=== PATIENT | male | born 1950 | race African-American/Black ===

== ENCOUNTER 2018-08-10 16:15 | Emergency (ER) | payer OTHER ==
[2018-08-10] MEDS ORDERED: ONDANSETRON HCL INJ/PF 4 MG/2 ML SDV IV ONE (17:18)
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
--- NOTE | 2018-08-10 19:00 | RADIOLOGY REPORT (SQ) ---
EXAM DESCRIPTION: CHEST 2 VIEWS COMPLETED DATE/TIME: 08/10/2018 6:52 pm REASON FOR STUDY: Cough congestion short of breath nvd COMPARISON: None. EXAM PARAMETERS: NUMBER OF VIEWS: two views TECHNIQUE: Digital Frontal and Lateral radiographic views of the chest acquired. RADIATION DOSE: NA LIMITATIONS: none FINDINGS: LUNGS AND PLEURA: Mild subsegmental atelectasis in the lung bases. No infiltrate, effusio n, or mass. MEDIASTINUM AND HILAR STRUCTURES: No masses or contour abnormalities. HEART AND VASCULAR STRUCTURES: Heart normal size. No evidence for failure. BONES: No acute findings. HARDWARE: None in the chest. OTHER: No other significant finding. IMPRESSION: Mild subsegmental atelectasis. TECHNICAL DOCUMENTATION: JOB ID: [id number] [employer]- All Rights Reserved Reading location - IP/workstation name: [email or web address]
[2018-08-10 19:36] LABS: ABSOLUTE LYMPHOCYTES (AUTO) 1.1 10^3/uL (0.5-4.7); ABSOLUTE MONOCYTES (AUTO) 0.5 10^3/uL (0.1-1.4); ABSOLUTE NEUT (AUTO) 6.3 10^3/uL (1.7-8.2); BASOPHILS % (AUTO) 0.6 % (0-2); EOSINOPHILS % (AUTO) 0.2 % (0-6); HEMATOCRIT 54.4 % (37.9-51.0); HEMOGLOBIN 18.4 g/dL (13.5-17.0); LYMPHOCYTES % (AUTO) 13.7 % (13-45); MEAN CORPUSCULAR HEMOGLOBIN 30.4 pg (27.0-33.4); MEAN CORPUSCULAR HGB CONC 33.8 g/dL (32.0-36.0); MEAN CORPUSCULAR VOLUME 90 fl (80-97); MONOCYTES % (AUTO) 6.8 % (3-13); PLATELET COUNT 238 10^3/uL (150-450); RED BLOOD COUNT 6.04 10^6/uL (4.35-5.55); RED CELL DISTRIBUTION WIDTH 14.1 % (11.5-14.0); SEGMENTED NEUTROPHILS % (AUTO) 78.7 % (42-78); TOTAL CELLS COUNTED % (AUTO) 100 %
[2018-08-10 19:55] LABS: ALANINE AMINOTRANSFERASE 33 U/L (21-72); ALBUMIN 4.7 g/dL (3.5-5.0); ALKALINE PHOSPHATASE 119 U/L (38-126); ANION GAP 9 (5-19); ASPARTATE AMINO TRANSFERASE 26 U/L (17-59); BILIRUBIN,DIRECT 0.3 mg/dL (0.0-0.4); BILIRUBIN,TOTAL 1.7 mg/dL (0.2-1.3); BLOOD UREA NITROGEN 13 mg/dL (7-20); CALCIUM 9.8 mg/dL (8.4-10.2); CARBON DIOXIDE 30 mmol/L (22-30); CHLORIDE 104 mmol/L (98-107); CREATINE KINASE 95 U/L (55-170); GLUCOSE 120 mg/dL (75-110); LIPASE 77.9 U/L (23-300); POTASSIUM 4.3 mmol/L (3.6-5.0); SODIUM 143.4 mmol/L (137-145); TOTAL PROTEIN 8.4 g/dL (6.3-8.2)
[2018-08-10 20:06] LABS: CREATINE KINASE MB 1.33 ng/mL (<4.55); TROPONIN I < 0.012 ng/mL
[2018-08-10 23:16] LABS: APPEARANCE,URINE SLIGHTLY-CLOUDY; BILIRUBIN,URINE NEGATIVE (NEGATIVE); COLOR,URINE YELLOW; GLUCOSE, URINE 50 mg/dL (NEGATIVE); KETONES,URINE 20 mg/dL (NEGATIVE); LEUKOCYTE ESTERASE,URINE NEGATIVE (NEGATIVE); NITRITE,URINE NEGATIVE (NEGATIVE); PROTEIN,URINE NEGATIVE (NEGATIVE); URINE SPECIFIC GRAVITY 1.024
[2018-08-11] VITALS: BP 137/83
[2018-08-11] MEDS ORDERED: MECLIZINE HCL 25 MG TABLET PO ONE (00:14)
[2018-08-11] MEDS ORDERED: ONDANSETRON ODT 4 MG TAB (6 TAB/ER DISP) PO PRN (00:15)
--- NOTE | 2018-08-11 00:17 | ER Document Report ---
ED General - General Chief Complaint: Dizziness Stated Complaint: DIZZINESS Time Seen by Provider: 08/10/18 17:17 Primary Care Provider: ARTHUR PAYNE MD [Primary Care Provider] - Follow up as needed Mode of Arrival: Medic Notes: Patient is a 67-year-old male who presents the emergency department after experiencing an episode of dizziness and lightheadedness that started at approximately 5:00 this afternoon. Patient reports that he vomited one time after he felt like the room was spinning around him. Patient does report having a history of vertigo and states that this is exactly what it felt like. Patient denies any recent illness, denies any shortness of breath or chest pain. - Related Data Allergies/Adverse Reactions: No Known Allergies Allergy (Unverified 08/10/18 16:19) Past Medical History - General Information source: Patient - Social History Smoking Status: Current Every Day Smoker Frequency of alcohol use: None Family History: Reviewed & Not Pertinent Patient has suicidal ideation: No Patient has homicidal ideation: No - Past Medical History Cardiac Medical History: Reports: Hx Hypertension EENT Medical History: Reports: Other - Vertigo Renal/ Medical History: Denies: Hx Peritoneal Dialysis Surgical Hx: Negative - Immunizations Immunizations up to date: Yes Review of Systems - Review of Systems Constitutional: Other - Dizziness, sensation of room spinning EENT: No symptoms reported Cardiovascular: No symptoms reported Respiratory: No symptoms reported Gastrointestinal: Nausea, Vomiting - x1. denies: Abdominal pain, Blood in vomit Genitourinary: No symptoms reported Male Genitourinary: No symptoms reported Musculoskeletal: No symptoms reported Skin: No symptoms reported Hematologic/Lymphatic: No symptoms reported Neurological/Psychological: No symptoms reported Physical Exam - Vital signs Vitals: Temp Pulse Resp BP Pulse Ox 97.5 F 87 16 138/99 H 97 08/10/18 16:28 08/10/18 16:28 08/10/18 16:28 08/10/18 16:28 08/10/18 16:28 - Notes Notes: PHYSICAL EXAMINATION: GENERAL: Well-appearing, well-nourished and in no acute distress. HEAD: Atraumatic, normocephalic. EYES: Pupils equal round and reactive to light, extraocular movements intact, sclera anicteric, conjunctiva are normal. ENT: Nares patent, oropharynx clear without exudates. Moist mucous membranes. NECK: Normal range of motion, supple without lymphadenopathy LUNGS: Breath sounds clear to auscultation bilaterally and equal. No wheezes rales or rhonchi. HEART: Regular rate and rhythm without murmurs ABDOMEN: Soft, nontender, nondistended abdomen. No guarding, no rebound. No masses appreciated. Musculoskeletal: Normal range of motion, no pitting or edema. No cyanosis. NEUROLOGICAL: Cranial nerves grossly intact. Normal speech, normal gait. Normal sensory, motor exams PSYCH: Normal mood, normal affect. SKIN: Warm, Dry, normal turgor, no rashes or lesions noted. Course - Re-evaluation Re-evalutation: This is an otherwise healthy male patient who is alert, oriented, smiling and interactive at the time of my initial assessment. Patient reports that this time he still feels a slight dizziness however his symptoms have mostly resolved. Patient reports that when he was at home he felt like the room was spinning around him. He describes that he has had vertigo one time in the past and was given a medication that helped. He states these episodes that started last night felt very similar to previous episodes of vertigo. He does state he vomited one time. He was given Zofran by the provider in triage and reports he has had no more episodes of vomiting and has not had any nausea. CBC, CMP and troponin are unremarkable. Urinalysis does have some hematuria but otherwise does not appear to be infected. Chest x-ray with no acute infiltrates or pneumothorax. Patient's vital signs were rechecked and are within normal limits. Patient has been up and ambulating around the nurses station with out any distress. Patient will be discharged home at this time with a diagnosis of vertigo and will be started on a 7-day course of meclizine. I encourage the patient to please use caution when getting up from bed in the morning before standing up. I also encouraged the patient to follow-up with his primary care provider if his symptoms persist. - Vital Signs Vital signs: Temp Pulse Resp BP Pulse Ox 98.7 F 96 16 137/83 H 97 08/10/18 23:58 08/10/18 23:58 08/10/18 23:58 08/10/18 23:58 08/10/18 23:58 - Laboratory Result Diagrams: 08/10/18 19:09 08/10/18 19:09 Laboratory results interpreted by me: 08/10/18 08/10/18 08/10/18 19:09 19:09 23:00 RBC 6.04 H Hgb 18.4 H Hct 54.4 H RDW 14.1 H Seg Neutrophils % 78.7 H Glucose 120 H Total Bilirubin 1.7 H Total Protein 8.4 H Urine Glucose (UA) 50 H Urine Ketones 20 H Urine Blood LARGE H Urine Urobilinogen 4.0 H Urine Ascorbic Acid 20 H Discharge - Discharge Clinical Impression: Vertigo Condition: Stable Disposition: HOME, SELF-CARE Instructions: Antinausea Medication ([facility]), Meclizine ([facility]), Vertigo ([facility]) Additional Instructions: It appears that your symptoms are most likely being caused by vertigo. Please take the meclizine as directed. Your blood work today was normal. Please follow-up with your primary care provider in the next 3-5 days for a follow-up. Please return to the emergency department should you experience worsening symptoms such as episode of passing out, development of chest pain or any other symptom that is concerning to you. Prescriptions: Meclizine HCl [Antivert 25 mg Tablet] 25 mg PO TID PRN #21 tablet PRN Reason: Referrals: ARTHUR PAYNE MD [Primary Care Provider] - Follow up as needed
== END 2018-08-11 00:25 | disposition home or self-care (01) ==
LOC: ER 16:15
DX: R42 Dizziness and giddiness (principal); R11.10 Vomiting, unspecified; I10 Essential (primary) hypertension; F17.200 Nicotine dependence, unspecified, uncomplicated
CPT/HCPCS: 99284; 96374; 36415; 82553; 82550; 83690; 85025; 80053; 81001; 84484; 71046; J2405

== ENCOUNTER 2018-11-26 06:16 | Emergency (ER) | payer OTHER ==
[2018-11-26] MEDS ORDERED: NORMAL SALINE 500 ML IV ONE (07:11)
[2018-11-26] MEDS ORDERED: MECLIZINE HCL 25 MG TABLET PO ONE (07:11)
[2018-11-26] MEDS ORDERED: ONDANSETRON HCL INJ/PF 4 MG/2 ML SDV IV ONE (07:11)
[2018-11-26] MEDS ORDERED: KETOROLAC TROMETHAMINE INJ/PF 30 MG/1 ML SDV IV ONE (07:12)
--- NOTE | 2018-11-26 09:49 | ER Document Report ---
ED General - General Chief Complaint: Vertigo Stated Complaint: DIZZINESS Time Seen by Provider: 11/26/18 06:53 Primary Care Provider: ARTHUR PAYNE MD [Primary Care Provider] - Follow up as needed TRAVEL OUTSIDE OF THE [place] IN LAST 30 DAYS: No - HPI Notes: Patient is a 67-year-old female who presents to the emergency department for evaluation of vertigo. He states it started in the middle the night last night. He has a history of similar. He denies any visual changes. He states he has no hearing loss, no tinnitus. Symptoms are worsened by turning his head. No recent head injuries. No URI. Taking his medications as prescribed. He states that he has used meclizine in the past which is helped, but he ran out. He does have a headache, that he rates currently a 3 out of 5, that he states is not dissimilar to headaches he had in the past with his vertigo. He had nausea with 2 episodes of emesis, nonbloody and nonbilious. - Related Data Allergies/Adverse Reactions: No Known Allergies Allergy (Unverified 08/10/18 16:19) Past Medical History - General Information source: Patient - Social History Smoking Status: Current Every Day Smoker Family History: Reviewed & Not Pertinent Patient has suicidal ideation: No Patient has homicidal ideation: No - Past Medical History Cardiac Medical History: Reports: Hx Hypercholesterolemia, Hx Hypertension Other: Vertigo Renal/ Medical History: Denies: Hx Peritoneal Dialysis - Immunizations Immunizations up to date: Yes Review of Systems - Review of Systems Constitutional: No symptoms reported EENT: See HPI Cardiovascular: No symptoms reported Respiratory: No symptoms reported Gastrointestinal: See HPI Genitourinary: No symptoms reported Musculoskeletal: No symptoms reported Skin: No symptoms reported Neurological/Psychological: No symptoms reported Physical Exam - Vital signs Vitals: Temp Pulse Resp BP Pulse Ox 98 F 110 H 20 159/110 H 97 11/26/18 06:19 11/26/18 06:19 11/26/18 06:19 11/26/18 06:19 11/26/18 06:19 - Notes Notes: Vital signs reviewed, please refer to chart. Head is normocephalic, atraumatic. Pupils equal round, reactive to light. TMs are pearly miner with good light reflex. Neck is supple without meningismus. Heart is regular rate and rhythm. Lungs are clear to auscultation bilaterally. Abdomen is soft, nontender, normoactive bowel sounds throughout. Extremities without cyanosis, clubbing. Posterior calves are nontender. Peripheral pulses are equal. Skin is warm and dry. Patient is awake, alert, oriented x3. He does have some horizontal nystagmus. Otherwise cranial nerves II through XII are grossly intact without focal neurological deficits. Strength is plus 5 out of 5 bilateral lower extremities. Reflexes are symmetrical, sensation is intact all 4 extremities. Intact [id number], rapid altering movements, [id number]. Course - Re-evaluation Re-evalutation: 11/26/18 09:47 Patient presents emergency department for evaluation. He has no neurological deficits, no other symptoms besides the vertigo, headache, vomiting. He is feeling markedly improved after treatment here. We will consider him home with Zofran and meclizine, close follow-up. He is return to the emergency department with worsening or new concerning symptoms of any sort. - Vital Signs Vital signs: Temp Pulse Resp BP Pulse Ox 98 F 110 H 16 147/98 H 97 11/26/18 06:19 11/26/18 06:19 11/26/18 08:01 11/26/18 08:01 11/26/18 08:01 Discharge - Discharge Clinical Impression: Benign positional vertigo Qualifiers: Laterality: unspecified laterality Qualified Code(s): H81.10 - Benign paroxysmal vertigo, unspecified ear Condition: Stable Disposition: HOME, SELF-CARE Instructions: Vertigo ([facility]) Additional Instructions: Stay hydrated with small, frequent sips of fluids. Take Zofran as needed for nausea, meclizine as needed for vertigo. Follow-up with your doctor this week. Return to the emergency department with worsening or new concerning symptoms. Referrals: ARTHUR PAYNE MD [Primary Care Provider] - Follow up as needed
[2018-11-26 10:08] VITALS: BP 144/90
== END 2018-11-26 10:08 | disposition home or self-care (01) ==
LOC: ER 06:16
DX: H81.10 Benign paroxysmal vertigo, unspecified ear (principal); R51 Headache; Z79.899 Other long term (current) drug therapy; F17.200 Nicotine dependence, unspecified, uncomplicated; I10 Essential (primary) hypertension
CPT/HCPCS: 99283; 96361; 96374; 96375; J1885; J2405; J7040

== ENCOUNTER 2019-11-25 10:04 | Observation (INO) | payer OTHER, MEDICARE ==
[2019-11-25 10:33] LABS: ABSOLUTE BASOPHILS # (AUTO) 0.1 10^3/uL (0.0-0.2); ABSOLUTE EOSINOPHILS # (AUTO) 0.2 10^3/uL (0.0-0.6); ABSOLUTE LYMPHOCYTES (AUTO) 2.9 10^3/uL (0.5-4.7); ABSOLUTE MONOCYTES (AUTO) 0.7 10^3/uL (0.1-1.4); ABSOLUTE NEUT (AUTO) 2.4 10^3/uL (1.7-8.2); BASOPHILS % (AUTO) 0.8 % (0-2); EOSINOPHILS % (AUTO) 3.7 % (0-6); HEMATOCRIT 51.4 % (37.9-51.0); HEMOGLOBIN 17.9 g/dL (13.5-17.0); LYMPHOCYTES % (AUTO) 46.5 % (13-45); MEAN CORPUSCULAR HEMOGLOBIN 31.2 pg (27.0-33.4); MEAN CORPUSCULAR HGB CONC 34.7 g/dL (32.0-36.0); MEAN CORPUSCULAR VOLUME 90 fl (80-97); PLATELET COUNT 259 10^3/uL (150-450); RED BLOOD COUNT 5.73 10^6/uL (4.35-5.55); RED CELL DISTRIBUTION WIDTH 14.7 % (11.5-14.0); TOTAL CELLS COUNTED % (AUTO) 100 %; WHITE BLOOD COUNT 6.3 10^3/uL (4.0-10.5)
--- NOTE | 2019-11-25 10:37 | RADIOLOGY REPORT (SQ) ---
EXAM DESCRIPTION: CT HEAD WITHOUT IMAGES COMPLETED DATE/TIME: 11/25/2019 10:19 am REASON FOR STUDY: Slurred Speech COMPARISON: None. TECHNIQUE: Axial images acquired through the brain without intravenous contrast. Images reviewed wi th bone, brain and subdural windows. Additional sagittal and coronal reconstructions were generated. Images stored on PACS. All CT scanners at this facility use dose modulation, iterative reconstruction, and/or weight based d osing when appropriate to reduce radiation dose to as low as reasonably achievable (ALARA). [facility]: Dose Right [facility]: CareDose [facility]: Dose Right [facility]: Teradose 4D [facility]: Modulus RADIATION DOSE: CT Rad equipment meets quality standard of care and radiation dose reduction techniq ues were employed. CTDIvol: 53.2 mGy. DLP: 1070 mGy-cm. mGy. LIMITATIONS: None. FINDINGS: VENTRICLES: Prominent. CEREBRUM: No masses. No hemorrhage. No midline shift. Areas of low density in the white matter mos t likely due to chronic micro-vascular ischemic change. No evidence for acute infarction. CEREBELLUM: No masses. No hemorrhage. No alteration of density. No evidence for acute infarction. EXTRAAXIAL SPACES: Mild age-related involutional change. No fluid collections. No masses. ORBITS AND GLOBE: No intra- or extraconal masses. Normal contour of globe without masses. CALVARIUM: No fracture. PARANASAL SINUSES: There is retention cyst or polyp in the left maxillary sinus. SOFT TISSUES: No mass or hematoma. OTHER: No other significant finding. IMPRESSION: MILD CHRONIC CHANGES OF ATROPHY AND MICROVASCULAR ISCHEMIA. NO ACUTE PROCESS. EVIDENCE OF ACUTE STROKE: NO. COMMENT: Pertinent positive or negative findings of the imaging study reported as a CRITICAL EXAM oswald German at10:30 on 11/25/2019. Category of Critical Exam: Stroke protocol. TECHNICAL DOCUMENTATION: JOB ID: [id number] Quality ID # [id number]: Final reports with documentation of one or more dose reduction techniques (e.g., Au tomated exposure control, adjustment of the mA and/or kV according to patient size, use of iterative reconstruction technique) 2010 [employer]- All Rights Reserved Reading location - IP/workstation name: [email or web address]
--- NOTE | 2019-11-25 10:39 | RADIOLOGY REPORT (SQ) ---
EXAM DESCRIPTION: CHEST SINGLE VIEW IMAGES COMPLETED DATE/TIME: 11/25/2019 10:22 am REASON FOR STUDY: Slurred Speech COMPARISON: 08/10/2018 EXAM PARAMETERS: NUMBER OF VIEWS: One view. TECHNIQUE: Single frontal radiographic view of the chest acquired. RADIATION DOSE: NA LIMITATIONS: None. FINDINGS: LUNGS AND PLEURA: Minimal blunting of the right costophrenic angle most likely pleural thi ckening although a small effusion cannot be excluded. No consolidation. No pneumothorax. MEDIASTINUM AND HILAR STRUCTURES: No masses. Contour normal. HEART AND VASCULAR STRUCTURES: Heart normal in size. Normal vasculature. BONES: No acute findings. HARDWARE: None in the chest. OTHER: No other significant finding. IMPRESSION: Minimal blunting of the right costophrenic angle. No other significant findings. TECHNICAL DOCUMENTATION: JOB ID: [id number] 2010 [employer]- All Rights Reserved Reading location - IP/workstation name: [email or web address]
[2019-11-25 10:50] LABS: ALBUMIN 4.1 g/dL (3.5-5.0); ALKALINE PHOSPHATASE 96 U/L (38-126); ANION GAP 7 (5-19); ASPARTATE AMINO TRANSFERASE 17 U/L (17-59); BILIRUBIN,TOTAL 1.1 mg/dL (0.2-1.3); BLOOD UREA NITROGEN 12 mg/dL (7-20); CALCIUM 9.5 mg/dL (8.4-10.2); CARBON DIOXIDE 28 mmol/L (22-30); CHLORIDE 102 mmol/L (98-107); CREATINE KINASE 83 U/L (55-170); GLUCOSE 109 mg/dL (75-110); TOTAL PROTEIN 7.5 g/dL (6.3-8.2)
--- NOTE | 2019-11-25 11:00 | ER Document Report ---
ED Neuro Symptoms/Deficit - General Chief Complaint: Numbness of Arm Stated Complaint: STROKE Time Seen by Provider: 11/25/19 10:15 Primary Care Provider: BILLY,ANA [Primary Care Provider] - Follow up as needed Notes: 68-year-old man presents to the emergency department with a history of intermittent episodes of speech difficulty with numbness involving the left arm and hand. He states that he has had episodes off and on for a number of weeks, however, on Monday he began having headache and dizziness with speech being slurred and left arm tingling. He continues to have the left arm tingling sensation at this time. He also states that he had felt like his legs were weak, however, he has been walking without difficulty. He is a smoker, he has hypertension and hyperlipidemia. TRAVEL OUTSIDE OF THE [place] IN LAST 30 DAYS: No - Related Data Allergies/Adverse Reactions: No Known Allergies Allergy (Unverified 08/10/18 16:19) Past Medical History - Social History Smoking Status: Current Every Day Smoker Family History: Reviewed & Not Pertinent Patient has homicidal ideation: No - Past Medical History Cardiac Medical History: Reports: Hx Hypercholesterolemia, Hx Hypertension Renal/ Medical History: Denies: Hx Peritoneal Dialysis - Immunizations Immunizations up to date: Yes Review of Systems - Review of Systems Notes: Constitutional: Negative for fever. HENT: Negative for sore throat. Eyes: Negative for visual changes. Cardiovascular: Negative for chest pain. Respiratory: Negative for shortness of breath. Gastrointestinal: Negative for abdominal pain, vomiting or diarrhea. Genitourinary: Negative for dysuria. Musculoskeletal: Negative for back pain. Skin: Negative for rash. Neurological: + Headaches, + tingling in the upper extremities, +slurred speech 10 point ROS negative except as marked above and in HPI. Physical Exam - Vital signs Vitals: Temp 98.5 F 11/25/19 10:05 - Notes Notes: PHYSICAL EXAMINATION: Physical Exam: General: Well-nourished well-developed in no acute distress HEENT: NC/AT, pupils equal round and reactive to light, MM moist,nares clear, oropharynx clear, airway patent Neck: supple, no adenopathy, no masses. Good range of motion Lungs: clear, no wheezing, no rales no rhonchi CVS: Regular rate and rhythm no murmur gallop or rub Abdomen: Soft, active, nontender, no masses, no hepatosplenomegaly Ext: No edema, clubbing or cyanosis. Neuro: Alert and responsive, moving all 4 extremities on command, cranial nerves intact, no focal findings Skin: Intact no open lesions, no rash PSYCH: Normal mood, normal affect. Course - Re-evaluation Re-evalutation: 11/25/19 12:19 Patient could not go to MRI due to a history of penile implant. Discussed the patient with the hospitalist, Dr. Turcios will admit the patient to the hospital for further evaluation and treatment. 11/25/19 12:22 Patient has an NIH score of 2-3, laying in the left arm with normal strength and episode of speech difficulty. No focal neuro findings. Patient is not a candidate for alteplase, symptoms ongoing since Monday. 11/23/2019 - Vital Signs Vital signs: Temp Pulse Resp BP Pulse Ox 98.5 F 94 16 145/85 H 94 11/25/19 10:09 11/25/19 10:39 11/25/19 10:39 11/25/19 10:39 11/25/19 10:39 - Laboratory Result Diagrams: 11/25/19 10:26 11/25/19 10:26 Laboratory results interpreted by me: 11/25/19 10:26 RBC 5.73 H Hgb 17.9 H Hct 51.4 H RDW 14.7 H Lymph % (Auto) 46.5 H Seg Neutrophils % 38.0 L - Diagnostic Test Radiology reviewed: Image reviewed, Reports reviewed - Chest x-ray: No acute cardiopulmonary findings CT head noncontrast: Mild chronic atrophic changes with microvascular ischemia, no acute stroke seen. - EKG Interpretation by [facility] EKG shows normal: Sinus rhythm - Rate of 84, no acute ST or T wave abnormalities. Discharge - Discharge Clinical Impression: Paresthesia of left arm, TIA (transient ischemic attack) Condition: Good Disposition: ADMITTED INPATIENT Admitting Provider: Karolina (Hospitalist) Unit Admitted: [facility]errals: [facility] [Primary Care Provider] - Follow up as needed
[2019-11-25 11:11] LABS: PARTIAL THROMBOPLASTIN TIME 33.5 SEC (23.5-35.8)
[2019-11-25 11:13] LABS: PROTHROMBIN TIME 13.7 SEC (11.4-15.4); TROPONIN I < 0.012 ng/mL
[2019-11-25 11:14] LABS: INTERNATIONAL RATION (INR) 1.05
[2019-11-25] MEDS ORDERED: ASPIRIN 325 MG TABLET PO ONE (11:53)
[2019-11-25 13:02] LABS: APPEARANCE,URINE SLIGHTLY-CLOUDY; BILIRUBIN,URINE NEGATIVE (NEGATIVE); COLOR,URINE YELLOW; GLUCOSE, URINE NEGATIVE (NEGATIVE); KETONES,URINE NEGATIVE (NEGATIVE); PROTEIN,URINE NEGATIVE (NEGATIVE); URINE SPECIFIC GRAVITY 1.012
[2019-11-25] MEDS ORDERED: TEMAZEPAM 7.5 MG CAPSULE PO PRN (13:37)
[2019-11-25] MEDS ORDERED: ACETAMINOPHEN 325 MG TABLET PO PRN (13:37)
[2019-11-25] MEDS ORDERED: MAGNESIUM HYDROXIDE SUSP 30 ML UDCUP PO PRN (13:37)
[2019-11-25] MEDS ORDERED: IPRATROPIUM/ALBUTEROL 0.5-2.5 MG/3 ML AMPUL NEB PRN (13:37)
[2019-11-25] MEDS ORDERED: NICOTINE 7 MG/24 HR PATCH.TD24 TD PRN (14:00)
--- NOTE | 2019-11-25 14:00 | PDOC H&P ---
History of Present Illness Admission Date/PCP: 11/25/19 12:40 [facility] Patient complains of: Dizziness, spinning around the room and bilateral upper extremity numbness and tingling for more than 1 year History of Present Illness: SHIV BAEZ is a 68 year old male Patient presents to the emergency room with complaints of numbness and tingling in his upper extremities bilaterally. Patient also complains of spinning around him. Further questioning patient states that this has been going on for a long time and it is not new. He just decided to come get it checked out today. Review of the chart does confirm this as there is an ED report from August 2018 with states exactly the same symptoms. Patient states that this pain was spinning around him and this was the same symptoms he had more than a year ago. CT scan done in the emergency room of course reveals no acute findings. MRI apparently was not done due to technical reasons. Patient has a penile implant. He follows up at the [facility] and says that he is physician basically just gave him some pills when he had this complaints but has never been referred to neurology. Patient was also seen in November 2018 in addition to August 2018 for the same reason. He denies any head trauma or neck trauma or back injury. Chest x-ray does not reveal any significant findings CT scan of the brain reveals no acute process. EKG shows a sinus rhythm with no acute findings. Past Medical History Cardiac Medical History: Reports: Hyperlipidema, Hypertension Past Surgical History Past Surgical History: Reports: None Social History Smoking Status: Current Every Day Smoker - Advance Directive Resuscitation Status: Full Code Family History Family History: Reviewed & Not Pertinent Parental Family History Reviewed: No Children Family History Reviewed: Yes Sibling(s) Family History Reviewed.: Yes Medication/Allergy Home Medications: Meclizine HCl [Antivert 25 mg Tablet] 25 mg PO TID PRN #21 tablet 11/26/18 Ondansetron [Zofran Odt 4 mg Tablet] 1 - 2 tab PO Q4H PRN #15 tab.rapdis 11/08 Allergies/Adverse Reactions: No Known Allergies Allergy (Unverified 08/10/18 16:19) Review of Systems All systems: reviewed and no additional remarkable complaints except as stated Constitutional: ABSENT: headache(s) Ears: ABSENT: hearing changes Cardiovascular: ABSENT: chest pain, palpitations Musculoskeletal: ABSENT: muscle weakness Neurological: PRESENT: dizziness, numbness, paresthesias, tingling, vertigo. ABSENT: abnormal gait, memory loss, weakness Physical Exam Vital Signs: Temp Pulse Resp BP Pulse Ox 97.8 F 94 19 139/80 H 99 11/25/19 13:01 11/25/19 10:39 11/25/19 13:01 11/25/19 13:01 11/25/19 13:01 Intake & Output 11/24/19 11/25/19 11/26/19 06:59 06:59 06:59 Weight 84.9 kg General appearance: PRESENT: no acute distress, well-developed, well-nourished Head exam: PRESENT: atraumatic, normocephalic Eye exam: PRESENT: conjunctiva pink, EOMI, PERRLA. ABSENT: scleral icterus Mouth exam: PRESENT: moist, tongue midline Neck exam: ABSENT: carotid bruit, JVD, lymphadenopathy, thyromegaly Respiratory exam: PRESENT: clear to auscultation george. ABSENT: rales, rhonchi, wheezes Cardiovascular exam: PRESENT: RRR, +S1, +S2. ABSENT: diastolic murmur, rubs, systolic murmur Pulses: PRESENT: normal dorsalis pedis pul Vascular exam: PRESENT: normal capillary refill GI/Abdominal exam: PRESENT: normal bowel sounds, soft. ABSENT: distended, guarding, mass, organolmegaly, rebound, tenderness Rectal exam: PRESENT: deferred Extremities exam: PRESENT: full ROM. ABSENT: calf tenderness, clubbing, pedal edema Neurological exam: PRESENT: alert, awake, oriented to person, oriented to place, oriented to time, oriented to situation, CN II-XII grossly intact. ABSENT: motor sensory deficit Psychiatric exam: PRESENT: appropriate affect, normal mood. ABSENT: homicidal ideation, suicidal ideation Skin exam: PRESENT: dry, intact, warm. ABSENT: cyanosis, rash Results Laboratory Results: 11/25/19 10:26 11/25/19 10:26 11/25/19 11/25/19 11/25/19 10: 10: 12:45 WBC 6.3 RBC 5.73 H Hgb 17.9 H Hct 51.4 H MCV 90 MCH 31.2 MCHC 34.7 RDW 14.7 H Plt Count 259 Seg Neutrophils % 38.0 L Sodium 137.4 Potassium 4.0 Chloride 102 Carbon Dioxide 28 Anion Gap 7 BUN 12 Creatinine 0.96 Est GFR ( Amer) > 60 Glucose 109 Calcium 9.5 Total Bilirubin 1.1 AST 17 Alkaline Phosphatase 96 Total Protein 7.5 Albumin 4.1 Urine Color YELLOW Urine Appearance SLIGHTLY-CLOUDY Urine pH 6.0 Ur Specific [place] 1.012 Urine Protein NEGATIVE Urine Glucose (UA) NEGATIVE Urine Ketones NEGATIVE Urine Blood MODERATE H Urine RBC (Auto) 8 11/25/19 11/25/19 10:26 10:26 Creatine Kinase 83 CK-MB (CK-2) 0.40 Troponin I < 0.012 Impressions: Chest X-Ray 11/25/19 10:09 IMPRESSION: Minimal blunting of the right costophrenic angle. No other sig nificant findings. Head CT 11/25/19 10:09 IMPRESSION: MILD CHRONIC CHANGES OF ATROPHY AND MICROVASCULAR ISCHEMIA. NO ACUTE PROCESS. EVIDENCE OF ACUTE STROKE: NO. Assessment and Plan - Diagnosis (1) Vertigo Is this a current diagnosis for this admission?: Yes Plan: This is a chronic complaint going on at least a year if normal. Unfortunately we are unable to obtain MRI due to patient's implant. I will suggest follow-up with neurology as outpatient. I will obtain carotid Doppler studies to rule out any underlying etiology (2) Tobacco abuse Is this a current diagnosis for this admission?: Yes Plan: Smoking cessation advised. Patient will be placed on nicotine patch (3) Paresthesia of left arm Is this a current diagnosis for this admission?: Yes Plan: Will obtain CT scan of the neck due to patient symptoms being bilateral - Plan Summary Summary: In my opinion and medical judgment this patient does not have a stroke or any evidence of a TIA. Will obtain carotid Doppler studies as well as echocardiogram but patient really needs neurology evaluation as outpatient for further evaluation - Time Time Spent with patient: 25-34 minutes Smoking Cessation Education: 3 to 10 minutes Anticipated discharge: Home Within: within 24 hours
--- NOTE | 2019-11-25 14:08 | EKG REPORT ---
SEVERITY:- NORMAL ECG - SINUS RHYTHM : Confirmed by: Patience Yarbrough MD 25-Nov-2019 14:08:29
--- NOTE | 2019-11-25 15:48 | RADIOLOGY REPORT (SQ) ---
EXAM DESCRIPTION: CT CERVICAL SPINE WITHOUT IMAGES COMPLETED DATE/TIME: 11/25/2019 3:33 pm REASON FOR STUDY: Bilateral numbness and tigling upper extremities COMPARISON: None. TECHNIQUE: Axial images acquired through the cervical spine without intravenous contrast. Images re viewed with lung, soft tissue and bone windows. Reconstructed coronal and sagittal MPR images review ed. Images stored on PACS. All CT scanners at this facility use dose modulation, iterative reconstruction, and/or weight based d osing when appropriate to reduce radiation dose to as low as reasonably achievable (ALARA). [facility]: Dose Right [facility]: CareDose [facility]: Dose Right [facility]: Teradose 4D [facility]: Newslabs RADIATION DOSE: CT Rad equipment meets quality standard of care and radiation dose reduction techniq ues were employed. CTDIvol: 22.0 mGy. DLP: 458 mGy-cm. mGy. LIMITATIONS: None. FINDINGS: ALIGNMENT: There is reversal of the normal cervical lordosis. MINERALIZATION: Normal. VERTEBRAL BODIES: No fractures or dislocation. DISCS: Multilevel disc space narrowing with osteophytes. No obvious high-grade stenosis on this nonc ontrast exam. Further evaluation with MRI or myelography may be helpful for further evaluation. FACETS, LATERAL MASSES, POSTERIOR ELEMENTS: Facet arthropathy. No fractures. No dislocation. No ac deon findings. HARDWARE: None in the spine. VISUALIZED RIBS: No fractures. LUNG APICES AND SOFT TISSUES: No significant or acute findings. OTHER: No other significant finding. IMPRESSION: Chronic multilevel spondylosis. No obvious high-grade stenosis on this noncontrast exam . Further evaluation with MRI or post myelography CT may be helpful for further evaluation if clinic ally indicated. TECHNICAL DOCUMENTATION: JOB ID: [id number] Quality ID # [id number]: Final reports with documentation of one or more dose reduction techniques (e.g., Au tomated exposure control, adjustment of the mA and/or kV according to patient size, use of iterative reconstruction technique) 2010 [employer]- All Rights Reserved Reading location - IP/workstation name: [email or web address]
[2019-11-26] MEDS: OXYCODONE-ACETAMINOPHEN 5-325 MG TABLET PO PRN ×2 (05:30→11:44)
--- NOTE | 2019-11-26 09:34 | RADIOLOGY REPORT (SQ) ---
EXAM DESCRIPTION: CAROTID DOPPLER IMAGES COMPLETED DATE/TIME: 11/25/2019 9:49 pm REASON FOR STUDY: Vertigo COMPARISON: None. TECHNIQUE: Grayscale ultrasound, Doppler velocity and spectra, and color Doppler images acquired of the extra-cranial carotid and vertebral arteries. Images stored on PACS. LIMITATIONS: None. FINDINGS: RIGHT CAROTID CCA Velocities: Within normal limits. ICA Velocities Peak systolic 40 cm/s. End diastolic 15 cm/s. Proximal ICA/CCA peak systolic ratio 1.1. Spectra normal. No significant plaque on grayscale evaluation. Mild intimal thickening. LEFT CAROTID CCA Velocities: Within normal limits. ICA Velocities Peak systolic 42 cm/s. End diastolic 20 cm/s. Proximal ICA/CCA peak systolic ratio 1.3. Spectra normal. No significant plaque on grayscale evaluation. Mild intimal thickening. VERTEBRAL ARTERIES: Antegrade right vertebral artery. Left vertebral artery is nonvisualized. SUBCLAVIAN ARTERIES: Not imaged. OTHER: No other significant finding. IMPRESSION: 1. No hemodynamically significant ICA stenosis. 2. Antegrade right vertebral artery. Left vertebral artery is nonvisualized. COMMENT: Quality ID #[id number]: Velocity criteria are extrapolated from the diameter data as defined by t he Society of Radiologists in Ultrasound Consensus Conference. Radiology 2003: 229; 340-346. TECHNICAL DOCUMENTATION: JOB ID: [id number] 2010 [employer]- All Rights Reserved Reading location - IP/workstation name: [email or web address]
[2019-11-26] MEDS ORDERED: DOCUSATE SODIUM 100 MG CAPSULE PO SCH (10:00)
[2019-11-26] MEDS ORDERED: ENOXAPARIN SODIUM INJ 40 MG/0.4 ML DISP.SYRIN SUBCUT SCH (10:00)
--- NOTE | 2019-11-26 12:36 | PDOC DISCHARGE SUMMARY ---
Impression - Admit/DC Date/PCP Admission Date/Primary Care Provider: 11/25/19 12:40 [facility] Discharge Date: 11/26/19 - Discharge Diagnosis (1) Vertigo Is this a current diagnosis for this admission?: Yes (2) Cervical spondylosis with radiculopathy Is this a current diagnosis for this admission?: Yes (3) Erythrocytosis Is this a current diagnosis for this admission?: Yes (4) Tobacco abuse Is this a current diagnosis for this admission?: Yes - Additional Information Resuscitation Status: Full Code Discharge Diet: As Tolerated Referrals: [facility] [Primary Care Provider] - Follow up as needed Prescriptions: Meclizine HCl 25 mg PO BIDP PRN #40 tablet PRN Reason: Home Medications: Albuterol Sulfate [Albuterol Sulfate Hfa] 2 puff IH Q4HP PRN 11/25/19 Albuterol Sulfate [Ventolin 0.083% Neb 2.5 mg/3 mL Ampul] 1 vial NEB Q6 11/25/19 Ammonium Lactate [Lac-Hydrin 12% Lotion 225Gm/Bottle] 1 applic TP BID 11/25/19 Aspirin [Adult Low Dose Aspirin EC] 81 mg PO DAILY 11/25/19 Atorvastatin Calcium [Lipitor 80 mg Tablet] 40 mg PO QHS 11/25/19 Lisinopril 10 mg PO DAILY 11/25/19 Melatonin 3 mg PO QHS 11/25/19 Meclizine HCl 25 mg PO BIDP PRN #40 tablet 11/26/19 History of Present Illiness History of Present Illness: According to admitting provider: SHIV BAEZ is a 68 year old male presents to the emergency room with complaints of numbness and tingling in his upper extremities bilaterally. Patient also complains of spinning around him. Further questioning patient states that this has been going on for a long time and it is not new. He just decided to come get it checked out today. Review of the chart does confirm this as there is an ED report from August 2018 with ben gonzalez exactly the same symptoms. Patient states that this pain was spinning around him and this was the same symptoms he had more than a year ago. CT scan done in the emergency room of course reveals no acute findings. MRI apparently was not done due to technical reasons. Patient has a penile implant. He follows up at the [facility] and says that he is physician basically just gave him some pills when he had this complaints but has never been referred to neurology. Patient was also seen in November 2018 in addition to August 2018 for the same reason. He denies any head trauma or neck trauma or back injury. Chest x-ray does not reveal any significant findings CT scan of the brain reveals no acute process. EKG shows a sinus rhythm with no acute findings. Hospital Course Hospital Course: Patient was admitted for evaluation of vertigo/dizziness, paresthesias in both arms. There was initial suspicion of possibility of TIA but upon further evaluation patient was realized to be having cervical radiculopathy caused by spondylosis in his cervical region. This was shown on CT scan of his cervical spine. Regarding patient's vertigo/dizziness, this has been a chronic issue for patient occurring intermittently over the past few years. He has not had an MRI to evaluate this but has shown good response to meclizine in the past according to patient. Unfortunately, brain MRI could not be obtained as radiology department could not perform this given his penile implant. Patient has been encouraged to follow-up with his primary care provider to coordinate with the device company of his implant to see if his device is MR-compatible and have an MRI of the brain scheduled outpatient. As this is a chronic issue for the past few years, I doubt that patient experienced an acute CVA that reignited his vertigo. It is still very much important for him to see a neurologist and get an MRI of the brain done which has been recommended to patient. Will be done also discharged with meclizine to use on an as-needed basis as well. Home physical therapy has been set up for vestibular therapy as well as to help with his cervical radiculopathy. Physical Exam Vital Signs: Temp Pulse Resp BP Pulse Ox 98.6 F 75 14 112/84 97 11/26/19 02:00 11/26/19 09:02 11/26/19 09:02 11/26/19 07:00 11/26/19 09:02 Intake & Output 11/25/19 11/26/19 11/27/19 06:59 06:59 06:59 Intake Total 936 Output Total 2 Balance 934 Weight 82.7 kg General appearance: PRESENT: no acute distress, cooperative Eye exam: ABSENT: nystagmus Respiratory exam: PRESENT: clear to auscultation george, unlabored Cardiovascular exam: PRESENT: RRR Musculoskeletal exam: PRESENT: ambulatory Neurological exam: PRESENT: alert, awake, oriented to person, oriented to place, oriented to time, oriented to situation Results Laboratory Results: WBC 6.3 10^3/uL (4.0-10.5) 11/25/19 10:26 RBC 5.73 10^6/uL (4.35-5.55) H 11/25/19 10:26 Hgb 17.9 g/dL (13.5-17.0) H 11/25/19 10:26 Hct 51.4 % (37.9-51.0) H 11/25/19 10:26 MCV 90 fl (80-97) 11/25/19 10:26 MCH 31.2 pg (27.0-33.4) 11/25/19 10: MCHC 34.7 g/dL (32.0-36.0) 11/25/19 10:26 RDW 14.7 % (11.5-14.0) H 11/25/19 10:26 Plt Count 259 10^3/uL (150-450) 11/25/19 10:26 Lymph % (Auto) 46.5 % (13-45) H 11/25/19 10:26 [place] % (Auto) 11.0 % (3-13) 11/25/19 10:26 Eos % (Auto) 3.7 % (0-6) 11/25/19 10:26 Baso % (Auto) 0.8 % (0-2) 11/25/19 10:26 Absolute Neuts (auto) 2.4 10^3/uL (1.7-8.2) 11/25/19 10:26 Absolute Lymphs (auto) 2.9 10^3/uL (0.5-4.7) 11/25/19 10:26 Absolute Monos (auto) 0.7 10^3/uL (0.1-1.4) 11/25/19 10:26 Absolute Eos (auto) 0.2 10^3/uL (0.0-0.6) 11/25/19 10:26 Absolute Basos (auto) 0.1 10^3/uL (0.0-0.2) 11/25/19 10:26 Seg Neutrophils % 38.0 % (42-78) L 11/25/19 10:26 PT 13.7 SEC (11.4-15.4) 11/25/19 10:26 INR 1.05 11/25/19 10:26 APTT 33.5 SEC (23.5-35.8) 11/25/19 10:26 Sodium 137.4 mmol/L (137-145) 11/25/19 10:26 Potassium 4.0 mmol/L (3.6-5.0) 11/25/19 10:26 Chloride 102 mmol/L (98-107) 11/25/19 10:26 Carbon Dioxide 28 mmol/L (22-30) 11/25/19 10:26 Anion Gap 7 (5-19) 11/25/19 10:26 BUN 12 mg/dL (7-20) 11/25/19 10:26 Creatinine 0.96 mg/dL (0.52-1.25) 11/25/19 10:26 Est GFR ( Amer) > 60 (>60) 11/25/19 10:26 Est GFR (MDRD) Non-Af > 60 (>60) 11/25/19 10:26 Glucose 109 mg/dL (75-110) 11/25/19 10:26 POC Glucose 102 mg/dL (70-110) 11/25/19 10:33 Calcium 9.5 mg/dL (8.4-10.2) 11/25/19 10:26 Total Bilirubin 1.1 mg/dL (0.2-1.3) 11/25/19 10:26 Direct Bilirubin 0.0 mg/dL (0.0-0.4) 11/25/19 10:26 Neonat Total Bilirubin Not Reportable 11/25/19 10:26 Neonat Direct Bilirubin Not Reportable 11/25/19 10:26 Neonat Indirect Bili Not Reportable 11/25/19 10:26 AST 17 U/L (17-59) 11/25/19 10:26 ALT 16 U/L (<50) 11/25/19 10:26 Alkaline Phosphatase 96 U/L (38-126) 11/25/19 10:26 Creatine Kinase 83 U/L (55-170) 11/25/19 10:26 CK-MB (CK-2) 0.40 ng/mL (<4.55) 11/25/19 10:26 Troponin I < 0.012 ng/mL 11/25/19 10:26 Total Protein 7.5 g/dL (6.3-8.2) 11/25/19 10:26 Albumin 4.1 g/dL (3.5-5.0) 11/25/19 10:26 Urine Color YELLOW 11/25/19 12:45 Urine Appearance SLIGHTLY-CLOUDY 11/25/19 12:45 Urine pH 6.0 (5.0-9.0) 11/25/19 12:45 Ur Specific [place] 1.012 11/25/19 12:45 Urine Protein NEGATIVE mg/dL (NEGATIVE) 11/25/19 12:45 Urine Glucose (UA) NEGATIVE mg/dL (NEGATIVE) 11/25/19 12:45 Urine Ketones NEGATIVE mg/dL (NEGATIVE) 11/25/19 12:45 Urine Blood MODERATE (NEGATIVE) H 11/25/19 12:45 Urine Nitrite (Reflex) POSITIVE (NEGATIVE) H 11/25/19 12:45 Urine Bilirubin NEGATIVE (NEGATIVE) 11/25/19 12:45 Urine Urobilinogen 4.0 mg/dL (<2.0) H 11/25/19 12:45 Leukocyte Esterase Rfl MODERATE (NEGATIVE) H 11/25/19 12:45 Urine RBC (Auto) 8 /HPF 11/25/19 12:45 Urine Bacteria (Auto) 3+ /HPF 11/25/19 12:45 Urine WBC (Reflex) 55 /HPF 11/25/19 12:45 Urine Mucus (Auto) FEW /LPF 11/25/19 12:45 Urine Ascorbic Acid NEGATIVE (NEGATIVE) 11/25/19 12:45 11/25/19 10:26 CK-MB (CK-2) 0.40 Troponin I < 0.012 Impressions: Carotid Doppler Study 11/25/19 00:00 IMPRESSION: 1. No hemodynamically significant ICA stenosis. 2. Antegrade right vertebral artery. Left vertebral artery is nonvisualized. Cervical Spine CT 11/25/19 00:00 IMPRESSION: Chronic multilevel spondylosis. No obvious high-grade stenosis on this noncontrast exam. Further evaluation with MRI or post myelography CT may be helpful for further evaluation if clinically indicated. Chest X-Ray 11/25/19 10:09 IMPRESSION: Minimal blunting of the right costophrenic angle. No other significant findings. Head CT 11/25/19 10:09 IMPRESSION: MILD CHRONIC CHANGES OF ATROPHY AND MICROVASCULAR ISCHEMIA. NO ACUTE PROCESS. EVIDENCE OF ACUTE STROKE: NO. Plan Time Spent: Less than 30 Minutes Stroke Is this a Stroke Patient?: No Acute Heart Failure - Is this a Heart Failure Patient?: No
[2019-11-26 15:12] VITALS: BP 112/84
== END 2019-11-26 15:47 | disposition home health service (06) ==
LOC: ER 10:04 → INTOOBSV 12:40 → EH 12:40 → 3W 14:10
PROVIDERS: ADMIT Internal Medicine; ATTEND Internal Medicine
DX: R42 Dizziness and giddiness (principal); M47.22 Other spondylosis with radiculopathy, cervical region; D75.1 Secondary polycythemia; E78.5 Hyperlipidemia, unspecified; I10 Essential (primary) hypertension; F17.200 Nicotine dependence, unspecified, uncomplicated; R47.81 Slurred speech; R51 Headache; Z96.0 Presence of urogenital implants; R82.90 Unspecified abnormal findings in urine; R29.703 NIHSS score 3
CPT/HCPCS: 93005; 99285; 36415; 87086; 82553; 82962; 82550; 85025; 85610; 85730; 87088; 80053; 81001; 84484; 87186; 93880; 71045; 70450; 72125; 93010; 97116; 97162; G0378 ×3

== ENCOUNTER 2020-03-06 05:34 | Inpatient (IN) | payer OTHER, MEDICARE ==
[2020-03-06] MEDS ORDERED: NORMAL SALINE 1000 ML 1,000 ML IV ONE ×2 (07:11→12:20)
[2020-03-06] MEDS ORDERED: MECLIZINE HCL 25 MG TABLET PO ONE (07:11)
[2020-03-06] MEDS ORDERED: ONDANSETRON HCL INJ/PF 4 MG/2 ML SDV IV ONE (07:11)
--- NOTE | 2020-03-06 07:21 | ER Document Report ---
Entered by HEIDI RANDHAWA SCRIBE 03/06/20 0714 Acting as scribe for:CLIFTON DUNN MD ED General - General Chief Complaint: Vomiting Stated Complaint: VOMITING,NAUSEA,DIZZINESS Time Seen by Provider: 03/06/20 06:54 Mode of Arrival: Ambulatory Information source: Patient Notes: This 69 year old male patient presents to the emergency department today with complaints of vertigo. Patient reports vertigo is a chronic issue for him and he takes meclizine every 6 hours for vertigo but it did not work today. His dizziness is elicited with rapid head movement. He has been nauseated with a few episodes of vomiting when moving around. Nausea subsides if he lies still. Patient has been seen many times for this problem over the last few years. He has been admitted here at least once. He has had several CT scans of the head. He is not an MRI candidate due to a penile implant. Patient reports that this feels just like all his previous episodes, but his every 6 hours meclizine is not controlling the symptoms this morning. TRAVEL OUTSIDE OF THE [place] IN LAST 30 DAYS: No - Related Data Allergies/Adverse Reactions: No Known Allergies Allergy (Unverified 08/10/18 16:19) Home Medications: lisinopril, meclizine, albuterol prn Past Medical History - General Information source: Patient - Social History Smoking Status: Current Every Day Smoker Cigarette use (# per day): Yes Frequency of alcohol use: None Drug Abuse: None Lives with: Spouse/Significant other Family History: Reviewed & Not Pertinent - Past Medical History Cardiac Medical History: Reports: Hx Hypercholesterolemia, Hx Hypertension Pulmonary Medical History: Reports: Hx Asthma Past Surgical History: Reports: Hx Bowel Surgery - bowel blockage, Hx Cardiac Catheterization - 20 years ago, does not know if stents were placed, Hx Orthopedic Surgery - Left ankle. Bilateral wrists., Other - Lymph node removal behind left ear. Penile implant. - Immunizations Immunizations up to date: Yes Review of Systems - Review of Systems Constitutional: No symptoms reported EENT: No symptoms reported Cardiovascular: See HPI, Dizziness Respiratory: No symptoms reported Gastrointestinal: See HPI, Nausea, Vomiting Genitourinary: No symptoms reported Male Genitourinary: No symptoms reported Musculoskeletal: No symptoms reported Skin: No symptoms reported Hematologic/Lymphatic: No symptoms reported Neurological/Psychological: No symptoms reported -: Yes All other systems reviewed and negative Physical Exam - Vital signs Vitals: Temp Pulse Resp BP Pulse Ox 97.6 F 65 16 138/105 H 97 03/06/20 05:40 03/06/20 05:40 03/06/20 05:40 03/06/20 05:40 03/06/20 05:40 - Notes Notes: Physical Exam: General: Alert, appears well. HEENT: Normocephalic. Atraumatic. PERRL. Extraocular movements intact. Oropharynx clear. Minimal left lateral gaze nystagmus with rapid head movement. Neck: Supple. Non-tender. Respiratory: No respiratory distress. Clear and equal breath sounds bilaterally. Cardiovascular: Irregularly irregular tachycardia Abdominal: Normal Inspection. Non-tender. No distension. Normal Bowel Sounds. Back: No gross abnormalities. Extremities: Moves all four extremities. Upper extremities: Normal inspection. Normal ROM. Lower extremities: Normal inspection. No edema. Normal ROM. Neurological: Normal cognition. AAOx4. Normal speech. Psychological: Normal affect. Normal Mood. Skin: Warm. Dry. Normal color. Course - Re-evaluation Re-evalutation: 03/06/20 12:04 The patient was evaluated during the global COVID-19 pandemic and that diagnosis was suspected/considered upon their initial presentation. Their evaluation, treatment and testing was consistent with current guidelines for patients who present with complaints or symptoms that may be related to COVID-19. - Vital Signs Vital signs: Temp Pulse Resp BP Pulse Ox 97.6 F 68 18 103/69 95 03/07/20 04:43 03/07/20 04:43 03/07/20 04:43 03/07/20 04:43 03/07/20 04:43 - Laboratory Result Diagrams: 03/06/20 08:18 03/06/20 08:18 Laboratory results interpreted by me: 03/06/20 03/06/20 03/06/20 08:18 08:18 08:18 RBC 5.78 H Hgb 17.5 H Hct 52.0 H RDW 14.4 H D-Dimer 0.89 H Carbon Dioxide 32 H Glucose 126 H Urine Blood 03/06/20 10:12 RBC Hgb Hct RDW D-Dimer Carbon Dioxide Glucose Urine Blood MODERATE H - Diagnostic Test Radiology reviewed: Image reviewed, Reports reviewed - CTA chest shows no pulmonary emboli. There is circumferential thickening of the wall of the thoracic esophagus suggesting esophagitis. There is cholelithiasis. There is a reticular and groundglass opacities in the lingula left lower lobe which could have represent atelectasis or pneumonia. - EKG Interpretation by Me EKG shows normal: [place], Intervals, QRS Complexes, ST-T Waves Rate: Tachycardia - 134 Rhythm: A.Fib When compared to previous EKG there are: Changes noted - Consults Dr. Garcia Time consulted: 12:00 Consulted provider: will come to ER Critical Care Note - Critical Care Note Total time excluding time spent on procedures (mins): 35 Comments: At least 35 minutes spent evaluating the patient, reviewing prior records, recognizing the patient was in new onset atrial fibrillation with rapid ventricular response. Time spent ordering medications, repeated reexaminations to evaluate response to medications, discussing with hospitalist and arranging admission. Discharge - Discharge Clinical Impression: New onset atrial fibrillation, Atrial fibrillation with RVR, Polycythemia, Chronic vertigo Nausea and vomiting Qualifiers: Vomiting type: unspecified Vomiting Intractability: non-intractable Qualified Code(s): R11.2 - Nausea with vomiting, unspecified Cholelithiasis Qualifiers: Cholelithiasis location: gallbladder Cholecystitis presence: without cholecystitis Biliary obstruction: without biliary obstruction Qualified Code(s): K80.20 - Calculus of gallbladder without cholecystitis without obstruction Condition: Stable Disposition: ADMITTED INPATIENT Admitting Provider: Jose (Hospitalist) Unit Admitted: IMCU I personally performed the services described in the documentation, reviewed and edited the documentation which was dictated to the scribe in my presence, and it accurately records my words and actions.
[2020-03-06 08:36] LABS: ABSOLUTE BASOPHILS # (AUTO) 0.1 10^3/uL (0.0-0.2); ABSOLUTE EOSINOPHILS # (AUTO) 0.1 10^3/uL (0.0-0.6); ABSOLUTE LYMPHOCYTES (AUTO) 1.8 10^3/uL (0.5-4.7); ABSOLUTE MONOCYTES (AUTO) 0.6 10^3/uL (0.1-1.4); ABSOLUTE NEUT (AUTO) 6.1 10^3/uL (1.7-8.2); BASOPHILS % (AUTO) 0.7 % (0-2); EOSINOPHILS % (AUTO) 1.4 % (0-6); HEMOGLOBIN 17.5 g/dL (13.5-17.0); LYMPHOCYTES % (AUTO) 20.8 % (13-45); MEAN CORPUSCULAR HEMOGLOBIN 30.3 pg (27.0-33.4); MEAN CORPUSCULAR HGB CONC 33.8 g/dL (32.0-36.0); MEAN CORPUSCULAR VOLUME 90 fl (80-97); MONOCYTES % (AUTO) 6.9 % (3-13); PLATELET COUNT 240 10^3/uL (150-450); RED BLOOD COUNT 5.78 10^6/uL (4.35-5.55); RED CELL DISTRIBUTION WIDTH 14.4 % (11.5-14.0); SEGMENTED NEUTROPHILS % (AUTO) 70.2 % (42-78); TOTAL CELLS COUNTED % (AUTO) 100 %; WHITE BLOOD COUNT 8.8 10^3/uL (4.0-10.5)
[2020-03-06 08:55] LABS: ALBUMIN 4.1 g/dL (3.5-5.0); ALKALINE PHOSPHATASE 106 U/L (38-126); ANION GAP 6 (5-19); ASPARTATE AMINO TRANSFERASE 20 U/L (17-59); BILIRUBIN,DIRECT 0.3 mg/dL (0.0-0.4); BILIRUBIN,TOTAL 0.7 mg/dL (0.2-1.3); BLOOD UREA NITROGEN 15 mg/dL (7-20); CALCIUM 9.9 mg/dL (8.4-10.2); CARBON DIOXIDE 32 mmol/L (22-30); CHLORIDE 103 mmol/L (98-107); CREATINE KINASE 85 U/L (55-170); GLUCOSE 126 mg/dL (75-110); POTASSIUM 4.3 mmol/L (3.6-5.0); TOTAL PROTEIN 7.6 g/dL (6.3-8.2)
[2020-03-06 09:17] LABS: INTERNATIONAL RATION (INR) 0.94; PROTHROMBIN TIME 12.7 SEC (11.4-15.4)
[2020-03-06 09:18] LABS: PARTIAL THROMBOPLASTIN TIME 31.9 SEC (23.5-35.8)
[2020-03-06] MEDS ORDERED: DILTIAZEM HCL INJ 25 MG/5 ML VIAL IV ONE (09:19)
[2020-03-06] MEDS ORDERED: DILTIAZEM HCL/D5W 125 MG/125 ML RTUINJ IV PRN ×2 (09:19→13:52)
[2020-03-06 09:20] LABS: D-DIMER 0.89 ug/mL (0.00-0.50)
[2020-03-06 11:15] LABS: APPEARANCE,URINE CLOUDY; BILIRUBIN,URINE NEGATIVE (NEGATIVE); COLOR,URINE YELLOW; GLUCOSE, URINE NEGATIVE (NEGATIVE); KETONES,URINE NEGATIVE (NEGATIVE); LEUKOCYTE ESTERASE,URINE NEGATIVE (NEGATIVE); NITRITE,URINE NEGATIVE (NEGATIVE); PROTEIN,URINE NEGATIVE (NEGATIVE); URINE SPECIFIC GRAVITY 1.016; UROBILINOGEN,URINE NEGATIVE mg/dL (<2.0)
--- NOTE | 2020-03-06 11:17 | EKG REPORT ---
SEVERITY:- ABNORMAL ECG - ATRIAL FIBRILLATION, V-RATE 108-[address] PREMATURE COMPLEXES ST ELEVATION SUGGESTS PERICARDITIS : Confirmed by: Patience Yarbrough MD 06-Mar-2020 11:16:40
--- NOTE | 2020-03-06 11:27 | RADIOLOGY REPORT (SQ) ---
EXAM DESCRIPTION: CTA CHEST IMAGES COMPLETED DATE/TIME: 03/06/2020 11:08 am REASON FOR STUDY: New A. fib,tachycardia,polycythemia,elevated dimer COMPARISON: None. TECHNIQUE: CT scan of the chest performed using helical scanning technique with dynamic intravenous contrast injection. Images reviewed with lung, soft tissue and bone windows. Reconstructed coronal and sagittal MPR images reviewed. Additional 3 dimensional post-processing performed to develop Maximal Intensity Projection images (DC P). All images stored on PACS. All CT scanners at this facility use dose modulation, iterative reconstruction, and/or weight based d osing when appropriate to reduce radiation dose to as low as reasonably achievable (ALARA). [facility]: Dose Right [facility]: CareDose [facility]: Dose Right [facility]: Teradose 4D [facility]: [employer] CONTRAST TYPE AND DOSE: Contrast/concentration: Isovue 350.00 mmol/ml; Total Contrast Delivered: 62. 0 ml; Total Saline Delivered: 70.0 ml Contrast bolus optimized for the pulmonary arteries. RENAL FUNCTION: GFR > 60. RADIATION DOSE: CT Rad equipment meets quality standard of care and radiation dose reduction techniq ues were employed. CTDIvol: 13.2 - 15.4 mGy. DLP: 559 mGy-cm. LIMITATIONS: None. FINDINGS: LUNGS AND PLEURA: The trachea and main bronchi are patent. The subpleural cystic spaces i n the anterior and lateral aspect of the right hemithorax could represent mild paraseptal emphysema. The reticular and ground-glass opacities in the lingula and left lower lobe (image 75 of series 3) c ould represent atelectasis or a pneumonia. There is no mass, pleural effusion or pneumothorax. AORTA AND GREAT VESSELS: No thoracic aortic dissection or aneurysm. HEART: Mild atherosclerotic calcification of the coronary arteries. The left ventricle is enlarged. There is no pericardial effusion. PULMONARY ARTERIES: No emboli. HILAR AND MEDIASTINAL STRUCTURES: The wall of the thoracic esophagus appears circumferentially thicke jeffrey. HARDWARE: None in the chest. UPPER ABDOMEN: Cystic lesions in the hepatic dome that measure up to 3.3 x 2.3 cm. There is cholelit hiasis without associated pericholecystic inflammation. THYROID AND OTHER SOFT TISSUES: No mass or adenopathy. BONES: No acute findings. 3D MIPS: Confirm above findings. OTHER: No other finding. IMPRESSION: 1. No pulmonary emboli. 2. The reticular and ground-glass opacities in the lingula left lower lobe (image 75 of series 3) co uld represent atelectasis or pneumonia. Correlation with clinical findings is recommended. 3. Circumferential thickening of the wall of the thoracic esophagus - correlate for an esophagitis. 4. Cholelithiasis. COMMENT: Quality ID # [id number]: Final reports with documentation of one or more dose reduction techniques (e.g., Automated exposure control, adjustment of the mA and/or kV according to patient size, use of iterative reconstruction technique) TECHNICAL DOCUMENTATION: JOB ID: [id number] 2010 [employer]- All Rights Reserved Reading location - IP/workstation name: [email or web address]
[2020-03-06] MEDS ORDERED: ONDANSETRON HCL INJ/PF 4 MG/2 ML SDV IV PRN (13:42)
[2020-03-06] MEDS ORDERED: MAG HYDROX/AL HYDROX/SIMETH SUSP 30 ML UDCUP PO PRN (13:42)
[2020-03-06] MEDS ORDERED: ACETAMINOPHEN 325 MG TABLET PO PRN (13:42)
[2020-03-06] MEDS ORDERED: ALBUTEROL SULFATE HFA (90 MCG/PUFF) 8 GM MDI IH PRN (13:49)
--- NOTE | 2020-03-06 14:13 | PDOC H&P ---
History of Present Illness Admission Date/PCP: 03/06/20 13:08 MD CLIN[facility] Patient complains of: Vertigo, vomiting History of Present Illness: SHIV BAEZ is a 69 year old male with a history of CVA, hypertension, hyperlipidemia, vertigo, and tobacco abuse, who presents to the hospital with complaints of worsening vertigo as well as nausea and vomiting. He had an episode of vomiting this morning which prompted his evaluation. Vomitus was nonbloody and nonbilious. Patient has had chronic vertigo for 2 years now. He states that he had MRI of the brain in the past in [facility] and was told that he had multiple strokes at some point. Seems to not have much in terms of residual weakness. His vertigo usually improves with meclizine which he takes as outpatient however has been worsening recently. He denies any new neurological symptoms otherwise. Denies any weaknesses newly. He states that upon the last discharge few months ago, he was getting physical therapy but he did not want them to do the vestibular therapy because he knew that he would trigger his symptoms. Still refusing Maria De Jesus's maneuver my attempt. In the ER, he was also noted to be in A. fib with RVR. He did not endorse any palpitations or chest pain. He does admit to a cough which has been chronic but starting to cough up some sputum. Denies any COVID-19 exposures. Denies fevers. Denies prior history of A. fib. Past Medical History Cardiac Medical History: Reports: Hyperlipidema, Hypertension Pulmonary Medical History: Reports: Asthma Psychiatric Medical History: Denies: Depression Past Surgical History Past Surgical History: Reports: Cardiac Catheterization - 20 years ago, does not know if stents were placed, Orthopedic Surgery - Left ankle. Bilateral wrists., Other - Lymph node removal behind left ear. Penile implant. Social History Lives with: Spouse/Significant other Smoking Status: Current Every Day Smoker - Advance Directive Resuscitation Status: Full Code Family History Family History: Hypertension Parental Family History Reviewed: Yes Children Family History Reviewed: NA Sibling(s) Family History Reviewed.: NA Medication/Allergy Home Medications: Albuterol Sulfate [Albuterol Sulfate Hfa] 2 puff IH Q4HP PRN 11/25/19 Ammonium Lactate [Lac-Hydrin 12% Lotion 225Gm/Bottle] 1 applic TP BID 11/25/19 Aspirin [Adult Low Dose Aspirin EC] 81 mg PO DAILY 11/25/19 Meclizine HCl 25 mg PO BIDP PRN #40 tablet 11/26/19 Allergies/Adverse Reactions: No Known Allergies Allergy (Unverified 08/10/18 16:19) Review of Systems Constitutional: ABSENT: chills, fatigue, fever(s) Eyes: ABSENT: visual disturbances Nose, Mouth, and Throat: ABSENT: headache(s) Cardiovascular: ABSENT: chest pain Respiratory: PRESENT: cough, sputum. ABSENT: dyspnea Gastrointestinal: PRESENT: nausea, vomiting. ABSENT: abdominal pain, diarrhea Musculoskeletal: ABSENT: back pain Integumentary: ABSENT: diaphoresis Neurological: PRESENT: vertigo Psychiatric: ABSENT: anxiety Endocrine: ABSENT: cold intolerance, heat intolerance Hematologic/Lymphatic: ABSENT: easy bleeding Allergic/Immunologic: PRESENT: seasonal rhinorrhea Physical Exam Vital Signs: Temp Pulse Resp BP Pulse Ox 97.6 F 65 15 104/76 93 03/06/20 05:40 03/06/20 05:40 03/06/20 13:46 03/06/20 13:46 03/06/20 13:46 Intake & Output 03/05/20 03/06/20 03/07/20 06:59 06:59 06:59 Intake Total 2017 Balance 2017 Weight 37.648 kg General appearance: PRESENT: no acute distress, cooperative Head exam: PRESENT: normocephalic Eye exam: PRESENT: EOMI Mouth exam: PRESENT: neck supple Neck exam: ABSENT: JVD Respiratory exam: PRESENT: clear to auscultation george, symmetrical, unlabored. ABSENT: tachypnea, wheezes Cardiovascular exam: PRESENT: irregular rhythm, +S1, +S2. ABSENT: tachycardia GI/Abdominal exam: PRESENT: soft. ABSENT: rebound, rigid, tenderness Extremities exam: ABSENT: pedal edema Neurological exam: PRESENT: alert, awake, oriented to person, oriented to place, oriented to time, oriented to situation Psychiatric exam: ABSENT: agitated, anxious Focused psych exam: ABSENT: pressured speech Skin exam: ABSENT: jaundice Results Laboratory Results: 03/06/20 08:18 03/06/20 08:18 03/06/20 03/06/20 03/06/20 08:18 08:18 10:12 WBC 8.8 RBC 5.78 H Hgb 17.5 H Hct 52.0 H MCV 90 MCH 30.3 MCHC 33.8 RDW 14.4 H Plt Count 240 Seg Neutrophils % 70.2 Sodium 141.2 Potassium 4.3 Chloride 103 Carbon Dioxide 32 H Anion Gap 6 BUN 15 Creatinine 0.95 Est GFR ( Amer) > 60 Glucose 126 H Calcium 9.9 Total Bilirubin 0.7 AST 20 Alkaline Phosphatase 106 Total Protein 7.6 Albumin 4.1 Urine Color YELLOW Urine Appearance CLOUDY Urine pH 7.0 Ur Specific [place] 1.016 Urine Protein NEGATIVE Urine Glucose (UA) NEGATIVE Urine Ketones NEGATIVE Urine Blood MODERATE H Urine Nitrite NEGATIVE Ur Leukocyte Esterase NEGATIVE Urine WBC (Auto) 8 Urine RBC (Auto) 14 03/06/20 03/06/20 08:18 08:18 Creatine Kinase 85 Troponin I < 0.012 Impressions: Chest/Abdomen CTA 03/06/20 10:02 IMPRESSION: 1. No pulmonary emboli. 2. The reticular and ground-glass opacities in the lingula left lower lobe (image 75 of series 3) could represent atelectasis or pneumonia. Correlation with clinical findings is recommended. 3. Circumferential thickening of the wall of the thoracic esophagus - correlate for an esophagitis. 4. Cholelithiasis. Assessment and Plan - Diagnosis (1) Paroxysmal atrial fibrillation with rapid ventricular response Is this a current diagnosis for this admission?: Yes Plan: New onset atrial fibrillation. Started on diltiazem drip in the ER due to rapid ventricular response. I will continue diltiazem drip. Admit to IMCU Start on p.o. diltiazem 30 mg every 6 hours. I will see if we can wean patient off drip today. Check echocardiogram Cardiac monitoring CHADSVASC score of 4 -start therapeutic Lovenox. Will convert to oral anticoagulant tomorrow. (2) Vertigo Is this a current diagnosis for this admission?: Yes Plan: This is acute on chronic. Possible etiologies include previous CVAs as reported by patient, surgery involving his left ear. Unfortunately, his MRI was done in [facility] and our radiology department was unable to perform an MRI on patient during his last admission for this due to penile implant. Physical therapy consulted for vestibular therapy-hopefully patient will be agreeable to receive this. Continue meclizine (3) Nausea and vomiting Qualifiers: Vomiting type: unspecified Vomiting Intractability: non-intractable Qualified Code(s): R11.2 - Nausea with vomiting, unspecified Is this a current diagnosis for this admission?: Yes Plan: Secondary to vertigo. Administer needed. IV Zofran as needed. (4) Bronchitis Is this a current diagnosis for this admission?: Yes Plan: Uncertain if acute on chronic bronchitis. He is a chronic and current tobacco smoker and may very well have chronic bronchitis. CTA of the chest did show groundglass opacity in his left lower lung and as a result we will check patient for COVID-19 infection. Symptomatic and supportive care Guaifenesin and albuterol Can check sputum culture (5) Polycythemia Is this a current diagnosis for this admission?: Yes Plan: Chronic (6) History of CVA (cerebrovascular accident) Is this a current diagnosis for this admission?: Yes Plan: Continue aspirin and atorvastatin - Time Time Spent with patient: 35 or more minutes Anticipated Discharge Disposition: Home, Self Care Anticipated Discharge Timeframe: within 48 hours
[2020-03-06] MEDS: ENOXAPARIN SODIUM INJ 80 MG/0.8 ML DISP.SYRIN SUBCUT SCH ×2 (16:21→21:51)
[2020-03-06] MEDS: NICOTINE 14 MG/24 HR PATCH.TD24 TD SCH (16:21)
[2020-03-06] MEDS: DILTIAZEM HCL 30 MG TABLET PO SCH ×2 (17:50→21:50)
[2020-03-06] MEDS: MECLIZINE HCL 25 MG TABLET PO SCH (17:54)
[2020-03-06] MEDS ORDERED: ALBUTEROL SULFATE HFA (90 MCG/PUFF) 8 GM MDI IH SCH (18:00)
[2020-03-06] MEDS: GUAIFENESIN 600 MG TABLET.SA PO SCH (21:51)
[2020-03-06] MEDS ORDERED: ATORVASTATIN CALCIUM 40 MG TABLET PO SCH (22:00)
[2020-03-06] MEDS ORDERED: MELATONIN 3 MG TABLET PO SCH (22:00)
--- NOTE | 2020-03-06 23:33 | EKG REPORT ---
SEVERITY:- NORMAL ECG - SINUS RHYTHM : Confirmed by: Patience Yarbrough MD 06-Mar-2020 23:32:22
[2020-03-07] MEDS ORDERED: PANTOPRAZOLE SODIUM 20 MG TABLET.DR PO SCH (06:00)
[2020-03-07] MEDS: DILTIAZEM HCL 30 MG TABLET PO SCH (06:03)
[2020-03-07 06:25] LABS: ABSOLUTE BASOPHILS # (AUTO) 0.1 10^3/uL (0.0-0.2); ABSOLUTE EOSINOPHILS # (AUTO) 0.3 10^3/uL (0.0-0.6); ABSOLUTE MONOCYTES (AUTO) 0.9 10^3/uL (0.1-1.4); PLATELET COUNT 203 10^3/uL (150-450); RED BLOOD COUNT 5.08 10^6/uL (4.35-5.55); TOTAL CELLS COUNTED % (AUTO) 100 %
[2020-03-07 06:43] LABS: ABSOLUTE LYMPHOCYTES (AUTO) 3.8 10^3/uL (0.5-4.7); ABSOLUTE NEUT (AUTO) 3.4 10^3/uL (1.7-8.2); BASOPHILS % (AUTO) 0.7 % (0-2); EOSINOPHILS % (AUTO) 3.8 % (0-6); HEMATOCRIT 45.4 % (37.9-51.0); HEMOGLOBIN 15.5 g/dL (13.5-17.0); LYMPHOCYTES % (AUTO) 44.7 % (13-45); MEAN CORPUSCULAR HEMOGLOBIN 30.4 pg (27.0-33.4); MEAN CORPUSCULAR VOLUME 89 fl (80-97); MONOCYTES % (AUTO) 10.4 % (3-13); RED CELL DISTRIBUTION WIDTH 14.4 % (11.5-14.0); SEGMENTED NEUTROPHILS % (AUTO) 40.4 % (42-78); WHITE BLOOD COUNT 8.4 10^3/uL (4.0-10.5)
[2020-03-07 06:48] LABS: ANION GAP 8 (5-19); BLOOD UREA NITROGEN 13 mg/dL (7-20); CALCIUM 8.9 mg/dL (8.4-10.2); CARBON DIOXIDE 23 mmol/L (22-30); CHLORIDE 106 mmol/L (98-107); GLUCOSE 93 mg/dL (75-110); POTASSIUM 4.2 mmol/L (3.6-5.0)
[2020-03-07 07:13] LABS: THYROID STIMULATING HORMONE 0.81 uIU/mL (0.47-4.68)
[2020-03-07] MEDS ORDERED: DOCUSATE SODIUM 100 MG CAPSULE PO SCH (10:00)
[2020-03-07] MEDS ORDERED: ASPIRIN 81 MG TABLET, ENT COATED PO SCH (10:00)
[2020-03-07] MEDS ORDERED: APIXABAN 5 MG TABLET PO SCH (10:00)
[2020-03-07] MEDS ORDERED: LISINOPRIL 10 MG TABLET PO SCH (10:00)
[2020-03-07] MEDS ORDERED: DILTIAZEM HCL 120 MG CAP.SR.24H PO SCH (10:00)
[2020-03-07] MEDS: NICOTINE 14 MG/24 HR PATCH.TD24 TD SCH (10:13)
[2020-03-07] MEDS: GUAIFENESIN 600 MG TABLET.SA PO SCH (10:13)
[2020-03-07] MEDS: MECLIZINE HCL 25 MG TABLET PO SCH (10:13)
[2020-03-07 10:39] VITALS: BP 143/98
--- NOTE | 2020-03-07 12:01 | PDOC DISCHARGE SUMMARY ---
Impression - Admit/DC Date/PCP Admission Date/Primary Care Provider: 03/06/20 13:08 [facility] Discharge Date: 03/07/20 - Discharge Diagnosis (1) Paroxysmal atrial fibrillation with rapid ventricular response Is this a current diagnosis for this admission?: Yes (2) Vertigo Is this a current diagnosis for this admission?: Yes (3) Nausea and vomiting Is this a current diagnosis for this admission?: Yes (4) Bronchitis Is this a current diagnosis for this admission?: Yes (5) Polycythemia Is this a current diagnosis for this admission?: Yes (6) History of CVA (cerebrovascular accident) Is this a current diagnosis for this admission?: Yes - Additional Information Resuscitation Status: Full Code Discharge Diet: As Tolerated Discharge Activity: Activity As Tolerated, No tub bath Referrals: [facility] [Primary Care Provider] - Follow up as needed ESSENCE CABRAL MD [ACTIVE STAFF] - JORDIN HAYES MD [ACTIVE STAFF] - Prescriptions: Diltiazem HCl [Cardizem Cd 120 mg Capsule] 120 mg PO DAILY #30 cap.sr.24h Apixaban [Eliquis 5 mg Tablet] 5 mg PO BID #60 tablet Meclizine HCl 25 mg PO TIDP PRN #40 tablet PRN Reason: Pantoprazole Sodium [Protonix [address] Tablet] 20 mg PO Q6AM #30 tablet. Home Medications: Albuterol Sulfate [Albuterol Sulfate Hfa] 2 puff IH Q4HP PRN 11/25/19 Ammonium Lactate [Lac-Hydrin 12% Lotion 225Gm/Bottle] 1 applic TP BID 11/25/19 Aspirin [Adult Low Dose Aspirin EC] 81 mg PO DAILY 11/25/19 Apixaban [Eliquis 5 mg Tablet] 5 mg PO BID #60 tablet 03/07/20 Diltiazem HCl [Cardizem Cd 120 mg Capsule] 120 mg PO DAILY #30 cap.sr.24h 03/07/20 Meclizine HCl 25 mg PO TIDP PRN #40 tablet 03/07/20 Ondansetron [Zofran Odt 4 mg Tablet] 1 - 2 tab PO Q4HP PRN #10 tab.rapdis 03/07/20 Pantoprazole Sodium [Protonix [address] Tablet] 20 mg PO Q6AM #30 tablet. 03/07/20 History of Present Illiness History of Present Illness: SHIV BAEZ is a 69 year old male with a history of CVA, hypertension, hyperlipidemia, vertigo, and tobacco abuse, who presents to the hospital with complaints of worsening vertigo as well as nausea and vomiting. He had an episode of vomiting this morning which prompted his evaluation. Vomitus was nonbloody and nonbilious. Patient has had chronic vertigo for 2 years now. He states that he had MRI of the brain in the past in [facility] and was told that he had multiple strokes at some point. Seems to not have much in terms of residual weakness. His vertigo usually improves with meclizine which he takes as outpatient however has been worsening recently. He denies any new neurological symptoms otherwise. Denies any weaknesses newly. He states that upon the last discharge few months ago, he was getting physical therapy but he did not want them to do the vestibular therapy because he knew that he would trigger his symptoms. Still refusing Maria De Jesus's maneuver my attempt. In the ER, he was also noted to be in A. fib with RVR. He did not endorse any palpitations or chest pain. He does admit to a cough which has been chronic but starting to cough up some sputum. Denies any COVID-19 exposures. Denies fevers. Denies prior history of A. fib. Hospital Course Hospital Course: Patient presented to the hospital predominantly for evaluation of nausea vomiting and vertigo. His vertigo has been chronic for him. 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 Notably on his last admission for vertigo, radiology department had declined to do an MRI brain because of his penile implant. States he was exacerbated this time because he woke up with his head hanging off the bed. Treated him with meclizine and he is feeling better. Had physical therapy evaluate but he declined Maria De Jesus maneuver and vestibular therapy. In the ER, patient was noted to have going to paroxysmal atrial fibrillation with rapid ventricular response. Of note this is new onset A. fib for this patient as he has never had any prior history of this. He was placed on a diltiazem drip and received diltiazem IV push. In a few hours, his heart rate normalized and converted back to sinus rhythm. Patient will be discharged on diltiazem p.o. 120 mg CD. He is CHADVASC score is 4 and as such I will start him on Eliquis. Echocardiogram is done. I will have patient follow-up with cardiology as outpatient. I also recommended he follow-up with ENT regarding his inner ear problems that are leading to his vertigo. Given prescriptions for meclizine to be used at home. Also noted to have some esophageal thickening on CAT scan of the chest which was suggestive of esophagitis and he has been started on acid suppression. Chest CTA showed no PE but did show some groundglass opacity in his left lower lung/thought she was tested for COVID-19. Result is pending at this time. Vital signs are stable and he is satting well on room air. Physical Exam Vital Signs: Temp Pulse Resp BP Pulse Ox 98.2 F 79 18 143/98 H 95 03/07/20 10:30 03/07/20 10:30 03/07/20 10:30 03/07/20 10:30 03/07/20 10:30 Intake & Output 03/06/20 03/07/20 03/08/20 06:59 06:59 06:59 Intake Total 2197 Balance 2197 Weight 37.648 kg 91.3 kg General appearance: PRESENT: no acute distress, cooperative Neck exam: ABSENT: JVD Respiratory exam: PRESENT: clear to auscultation george Cardiovascular exam: PRESENT: RRR, +S1, +S2. ABSENT: irregular rhythm, tachycardia Extremities exam: ABSENT: pedal edema Neurological exam: PRESENT: alert, awake, oriented to person, oriented to place, oriented to time, oriented to situation Psychiatric exam: ABSENT: agitated, anxious Results Laboratory Results: WBC 8.4 10^3/uL (4.0-10.5) 03/07/20 05:30 RBC 5.08 10^6/uL (4.35-5.55) 03/07/20 05:30 Hgb 15.5 g/dL (13.5-17.0) 03/07/20 05:30 Hct 45.4 % (37.9-51.0) 03/07/20 05:30 MCV 89 fl (80-97) 03/07/20 05:30 MCH 30.4 pg (27.0-33.4) 03/07/20 05:30 MCHC 34.0 g/dL (32.0-36.0) 03/07/20 05:30 RDW 14.4 % (11.5-14.0) H 03/07/20 05:30 Plt Count 203 10^3/uL (150-450) 03/07/20 05:30 Lymph % (Auto) 44.7 % (13-45) 03/07/20 05:30 [place] % (Auto) 10.4 % (3-13) 03/07/20 05:30 Eos % (Auto) 3.8 % (0-6) 03/07/20 05:30 Baso % (Auto) 0.7 % (0-2) 03/07/20 05:30 Absolute Neuts (auto) 3.4 10^3/uL (1.7-8.2) 03/07/20 05:30 Absolute Lymphs (auto) 3.8 10^3/uL (0.5-4.7) 03/07/20 05:30 Absolute Monos (auto) 0.9 10^3/uL (0.1-1.4) 03/07/20 05:30 Absolute Eos (auto) 0.3 10^3/uL (0.0-0.6) 03/07/20 05:30 Absolute Basos (auto) 0.1 10^3/uL (0.0-0.2) 03/07/20 05:30 Seg Neutrophils % 40.4 % (42-78) L 03/07/20 05:30 PT 12.7 SEC (11.4-15.4) 03/06/20 08:18 INR 0.94 03/06/20 08:18 APTT 31.9 SEC (23.5-35.8) 03/06/20 08:18 D-Dimer 0.89 ug/mL (0.00-0.50) H 03/06/20 08:18 Sodium 137.4 mmol/L (137-145) 03/07/20 05:30 Potassium 4.2 mmol/L (3.6-5.0) 03/07/20 05:30 Chloride 106 mmol/L (98-107) 03/07/20 05:30 Carbon Dioxide 23 mmol/L (22-30) 03/07/20 05:30 Anion Gap 8 (5-19) 03/07/20 05:30 BUN 13 mg/dL (7-20) 03/07/20 05:30 Creatinine 0.83 mg/dL (0.52-1.25) 03/07/20 05:30 Est GFR ( Amer) > 60 (>60) 03/07/20 05:30 Est GFR (MDRD) Non-Af > 60 (>60) 03/07/20 05:30 Glucose 93 mg/dL (75-110) 03/07/20 05:30 Calcium 8.9 mg/dL (8.4-10.2) 03/07/20 05:30 Magnesium 2.0 mg/dL (1.6-2.3) 03/07/20 05:30 Total Bilirubin 0.7 mg/dL (0.2-1.3) 03/06/20 08:18 Direct Bilirubin 0.3 mg/dL (0.0-0.4) 03/06/20 08:18 Neonat Total Bilirubin Not Reportable 03/06/20 08:18 Neonat Direct Bilirubin Not Reportable 03/06/20 08:18 Neonat Indirect Bili Not Reportable 03/06/20 08:18 AST 20 U/L (17-59) 03/06/20 08:18 ALT 18 U/L (<50) 03/06/20 08:18 Alkaline Phosphatase 106 U/L (38-126) 03/06/20 08:18 Creatine Kinase 85 U/L (55-170) 03/06/20 08:18 Troponin I < 0.012 ng/mL 03/06/20 08:18 Total Protein 7.6 g/dL (6.3-8.2) 03/06/20 08:18 Albumin 4.1 g/dL (3.5-5.0) 03/06/20 08:18 TSH 0.81 uIU/mL (0.47-4.68) 03/07/20 05:30 Free T4 1.00 ng/dL (0.78-2.19) 03/07/20 05:30 Urine Color YELLOW 03/06/20 10:12 Urine Appearance CLOUDY 03/06/20 10:12 Urine pH 7.0 (5.0-9.0) 03/06/20 10:12 Ur Specific Central 1.016 03/06/20 10:12 Urine Protein NEGATIVE mg/dL (NEGATIVE) 03/06/20 10:12 Urine Glucose (UA) NEGATIVE mg/dL (NEGATIVE) 03/06/20 10:12 Urine Ketones NEGATIVE mg/dL (NEGATIVE) 03/06/20 10:12 Urine Blood MODERATE (NEGATIVE) H 03/06/20 10:12 Urine Nitrite NEGATIVE (NEGATIVE) 03/06/20 10:12 Urine Bilirubin NEGATIVE (NEGATIVE) 03/06/20 10:12 Urine Urobilinogen NEGATIVE mg/dL (<2.0) 03/06/20 10:12 Ur Leukocyte Esterase NEGATIVE (NEGATIVE) 03/06/20 10:12 Urine WBC (Auto) 8 /HPF 03/06/20 10:12 Urine RBC (Auto) 14 /HPF 03/06/20 10:12 U Hyaline Cast (Auto) 1 /LPF 03/06/20 10:12 Urine Bacteria (Auto) 3+ /HPF 03/06/20 10:12 Urine Mucus (Auto) OCC /LPF 03/06/20 10:12 Urine Ascorbic Acid NEGATIVE (NEGATIVE) 03/06/20 10:12 03/06/20 08:18 Troponin I < 0.012 Impressions: Chest/Abdomen CTA 03/06/20 10:02 IMPRESSION: 1. No pulmonary emboli. 2. The reticular and ground-glass opacities in the lingula left lower lobe (image 75 of series 3) could represent atelectasis or pneumonia. Correlation with clinical findings is recommended. 3. Circumferential thickening of the wall of the thoracic esophagus - correlate for an esophagitis. 4. Cholelithiasis. Plan Time Spent: Less than 30 Minutes Stroke Is this a Stroke Patient?: No Acute Heart Failure - Is this a Heart Failure Patient?: No
--- NOTE | 2020-03-07 13:32 | XCELERA REPORT ---
[address] [address] Transthoracic Echocardiogram Report Name: SHIV BAEZ Age: 69 yrs Gender: Male : 1950 Patient Status: Inpatient Patient Location: [address] [place] [address] Study Date: 03/06/2020 03:32 PM Height: 66 in Weight: 183 lb BSA: 1.9 m2 Procedure: A complete two-dimensional transthoracic echocardiogram was performed (2D, M-mode, spectral and color flow Doppler). The study was technically limited with all images being suboptimal in quality. Images from the parasternal window were difficult to obtain and are suboptimal in quality. The subcostal views were difficult to obtain and are suboptimal in quality. Reason For Study: new onset afib Ordering Physician: GREG PHILLIPS Performed By: Yanet Trinidad Interpretation Summary Very limited and almost non-diagnostic study. The left ventricle is grossly normal size. LV systolic function appears to be normal. Doppler measurements suggest normal left ventricular diastolic function. Very limited study, cannot assess for regional wall motion abnormalities. Valvular structures were not well visualized particularly the mitral valve. At least trace TR. Trace and hemodynamically insignificant circumferentilal pericardial effusion. No prior studies for comparison. MMode/2D Measurements & Calculations RVDd: 3.4 cm LVIDd: 3.6 cm FS: 27.6 % Ao root diam: 2.8 cm IVSd: 1.1 cm LVIDs: 2.6 cm EDV(Teich): Ao root area: 54.4 ml LVPWd: 1.1 cm 6.4 cm2 ESV(Teich): LA dimension: 3.5 cm 24.8 ml EF(Teich): 54.4 % LVLd ap4: 6.1 cm SV(MOD-sp4): EDV(MOD-sp4): 17.0 ml 41.0 ml LVLs ap4: 4.6 cm ESV(MOD-sp4): 24.0 ml EF(MOD-sp4): 41.5 % Doppler Measurements & Calculations MV E max pallavi: MV P1/2t max pallavi: Ao V2 max: LV V1 max P.4 cm/sec 76.8 cm/sec 140.6 cm/sec 4.8 mmHg MV A max pallavi: MV P1/2t: 69.5 msec Ao max PG: LV V1 max: 80.9 cm/sec 7.9 mmHg 109.1 cm/sec MVA(P1/2t): 3.2 cm2 MV E/A: 1.0 MV dec slope: 323.6 cm/sec2 MV dec time: 0.23 sec MV P1/2t-pr_phl: 69.5 msec Left Ventricle The left ventricle is grossly normal size. LV systolic function appears to be normal. Doppler measurements suggest normal left ventricular diastolic function. Very limited study, cannot assess for regional wall motion abnormalities. Right Ventricle The right ventricle is grossly normal size. The right ventricular systolic function is normal. Atria The right atrium is normal. The left atrial size is normal. Not well visualized. Mitral Valve Very limited study. Valve was not visualized Doppler interrogation was suboptimal and cannot reliably assess for insufficiency. Aortic Valve The aortic valve is not well visualized secondary to technical limitations. There is no aortic valve stenosis. No aortic regurgitation is present. Tricuspid Valve The tricuspid valve is not well visualized secondary to technical limitations. There is no tricuspid stenosis. There is a trace amount of tricuspid regurgitation. Pulmonic Valve The pulmonic valve is not well visualized. Effusions Trace and hemodynamically insignificant circumferentilal pericardial effusion. There is no pleural effusion. : GREG PHILLIPS Antonio
[2020-03-07] MEDS ORDERED: ALBUTEROL SULFATE HFA (90 MCG/PUFF) 200 PUFF/8.5 GM MDI IH PRN (15:22)
[2020-03-07] MEDS ORDERED: ALBUTEROL SULFATE HFA (90 MCG/PUFF) 200 PUFF/8.5 GM MDI IH SCH (18:00)
--- NOTE | 2020-03-07 18:59 | EKG REPORT ---
SEVERITY:- NORMAL ECG - SINUS RHYTHM : Confirmed by: Patience Yarbrough MD 07-Mar-2020 18:58:20
== END 2020-03-07 15:30 | disposition home or self-care (01) | DRG 310 ==
LOC: ER 05:34 → EH 13:08 → 3N 17:00
PROVIDERS: ADMIT Internal Medicine; ATTEND Internal Medicine
DX: I48.0 Paroxysmal atrial fibrillation (principal); R42 Dizziness and giddiness; H83.92 Unspecified disease of left inner ear; I10 Essential (primary) hypertension; E78.00 Pure hypercholesterolemia, unspecified; R11.2 Nausea with vomiting, unspecified; I69.398 Other sequelae of cerebral infarction; Z20.828 Contact with and (suspected) exposure to other viral communicable diseases; F17.210 Nicotine dependence, cigarettes, uncomplicated; K20.9 Esophagitis, unspecified; E78.5 Hyperlipidemia, unspecified; J40 Bronchitis, not specified as acute or chronic; Z96.9 Presence of functional implant, unspecified; D75.1 Secondary polycythemia; Z79.899 Other long term (current) drug therapy; Z79.82 Long term (current) use of aspirin; Z79.51 Long term (current) use of inhaled steroids
CPT/HCPCS: 36415; 71275; 80048; 80053; 81001; 82550; 83735; 84439; 84443; 84484; 85025; 85379; 85610; 85730; 87635; 93005; 93010; 93306; 96361; 96365; 96366; 96375; 99291; C9803; J1650; J2405; J3490; J7030

== ENCOUNTER 2020-03-15 14:38 | Emergency (ER) | payer OTHER, MEDICARE ==
[2020-03-15] MEDS ORDERED: ONDANSETRON HCL INJ/PF 4 MG/2 ML SDV IV ONE (15:05)
--- NOTE | 2020-03-15 15:05 | ER Document Report ---
ED Medical Screen (RME) - General Chief Complaint: Nausea/Vomiting Stated Complaint: VOMITING,NAUEA,HEADACHE Time Seen by Provider: 03/15/20 14:57 Primary Care Provider: BILLY,ANA [Primary Care Provider] - Follow up as needed TRAVEL OUTSIDE OF THE [place] IN LAST 30 DAYS: No - HPI Notes: 03/15/20 15:06 I performed a brief medical screening exam on the patient determined that the patient needs further evaluation and management by main side provider. I have placed initial orders to help expedite care. 69-year-old male to the emergency department with acute onset of dizziness, nausea, vomiting. He states he has a history of vertigo and this feels similar. However, he also states this feels similar to when he was just discharged from the hospital on March 06. He was admitted to the hospital for atrial fibrillation with rapid ventricular rate on 06 March. He states he is only vomited once but he feels "drunk" when he is trying to get up and move around. Denies chest pain. Denies shortness of breath. Brief focal neurological exam on medical screening notes no pronator drift, normal [id number], no leg drift, cranial nerves II through XII intact. - Related Data Allergies/Adverse Reactions: No Known Allergies Allergy (Unverified 08/10/18 16:19) Past Medical History - Past Medical History Cardiac Medical History: Reports: Hx Hypercholesterolemia, Hx Hypertension Pulmonary Medical History: Reports: Hx Asthma Renal/ Medical History: Denies: Hx Peritoneal Dialysis Psychiatric Medical History: Denies: Hx Depression Past Surgical History: Reports: Hx Bowel Surgery - bowel blockage, Hx Cardiac Catheterization - 20 years ago, does not know if stents were placed, Hx Orthopedic Surgery - Left ankle. Bilateral wrists., Other - Lymph node removal behind left ear. Penile implant. - Immunizations Immunizations up to date: Yes Physical Exam - Vital signs Vitals: Temp Pulse Resp BP Pulse Ox 97.6 F 90 20 151/90 H 96 03/15/20 14:41 03/15/20 14:41 03/15/20 14:41 03/15/20 14:41 03/15/20 14:41 Course - Vital Signs Vital signs: Temp Pulse Resp BP Pulse Ox 97.6 F 90 20 151/90 H 96 03/15/20 14:41 03/15/20 14:41 03/15/20 14:41 03/15/20 14:41 03/15/20 14:41 Doctor's Discharge - Discharge [facility]errals: [facility] [[facility]] - Follow up as needed
[2020-03-15 15:42] LABS: ABSOLUTE BASOPHILS # (AUTO) 0.1 10^3/uL (0.0-0.2); ABSOLUTE EOSINOPHILS # (AUTO) 0.2 10^3/uL (0.0-0.6); ABSOLUTE LYMPHOCYTES (AUTO) 2.5 10^3/uL (0.5-4.7); ABSOLUTE MONOCYTES (AUTO) 0.7 10^3/uL (0.1-1.4); ABSOLUTE NEUT (AUTO) 4.5 10^3/uL (1.7-8.2); BASOPHILS % (AUTO) 0.9 % (0-2); EOSINOPHILS % (AUTO) 2.1 % (0-6); HEMOGLOBIN 17.5 g/dL (13.5-17.0); LYMPHOCYTES % (AUTO) 31.4 % (13-45); MEAN CORPUSCULAR VOLUME 89 fl (80-97); MONOCYTES % (AUTO) 8.5 % (3-13); PLATELET COUNT 240 10^3/uL (150-450); RED BLOOD COUNT 5.64 10^6/uL (4.35-5.55); RED CELL DISTRIBUTION WIDTH 14.4 % (11.5-14.0); SEGMENTED NEUTROPHILS % (AUTO) 57.1 % (42-78); TOTAL CELLS COUNTED % (AUTO) 100 %; WHITE BLOOD COUNT 7.8 10^3/uL (4.0-10.5)
[2020-03-15 15:49] LABS: INTERNATIONAL RATION (INR) 1.01; PROTHROMBIN TIME 13.5 SEC (11.4-15.4)
[2020-03-15 15:50] LABS: PARTIAL THROMBOPLASTIN TIME 31.3 SEC (23.5-35.8)
[2020-03-15 15:58] LABS: ALBUMIN 4.3 g/dL (3.5-5.0); ALKALINE PHOSPHATASE 110 U/L (38-126); ANION GAP 10 (5-19); ASPARTATE AMINO TRANSFERASE 20 U/L (17-59); BILIRUBIN,DIRECT 0.3 mg/dL (0.0-0.4); BILIRUBIN,TOTAL 1.3 mg/dL (0.2-1.3); BLOOD UREA NITROGEN 9 mg/dL (7-20); CALCIUM 9.6 mg/dL (8.4-10.2); CARBON DIOXIDE 26 mmol/L (22-30); CHLORIDE 104 mmol/L (98-107); GLUCOSE 148 mg/dL (75-110); POTASSIUM 4.3 mmol/L (3.6-5.0); TOTAL PROTEIN 7.7 g/dL (6.3-8.2)
--- NOTE | 2020-03-15 17:06 | ER Document Report ---
ED General - General Chief Complaint: Nausea/Vomiting Stated Complaint: VOMITING,NAUEA,HEADACHE Time Seen by Provider: 03/15/20 14:57 Primary Care Provider: [facility] [Primary Care Provider] - Follow up as needed Notes: 69-year-old male presents to the emergency department with positional dizziness and nausea and vomiting. He was seen in the hospital approximately a week ago was diagnosed with vertigo at that time. He denies any other associated neurologic symptoms. Worsening symptoms with positional change states that the medications that he was given are not helping. TRAVEL OUTSIDE OF THE [place] IN LAST 30 DAYS: No - Related Data Allergies/Adverse Reactions: No Known Allergies Allergy (Unverified 08/10/18 16:19) Past Medical History - Social History Smoking Status: Current Every Day Smoker Family History: Reviewed & Not Pertinent - Past Medical History Cardiac Medical History: Reports: Hx Hypercholesterolemia, Hx Hypertension Pulmonary Medical History: Reports: Hx Asthma Renal/ Medical History: Denies: Hx Peritoneal Dialysis Psychiatric Medical History: Denies: Hx Depression Past Surgical History: Reports: Hx Bowel Surgery - bowel blockage, Hx Cardiac Catheterization - 20 years ago, does not know if stents were placed, Hx Orthopedic Surgery - Left ankle. Bilateral wrists., Other - Lymph node removal behind left ear. Penile implant. - Immunizations Immunizations up to date: Yes Review of Systems - Review of Systems Notes: Constitutional: Negative for fever. HENT: Negative for sore throat. Eyes: Negative for visual changes. Cardiovascular: Negative for chest pain. Respiratory: Negative for shortness of breath. Gastrointestinal: + Nausea and vomiting Genitourinary: Negative for dysuria. Musculoskeletal: Negative for back pain. Skin: Negative for rash. Neurological: + Dizziness 10 point ROS negative except as marked above and in HPI. Physical Exam - Vital signs Vitals: Temp Pulse Resp BP Pulse Ox 97.6 F 90 20 151/90 H 96 03/15/20 14:41 03/15/20 14:41 03/15/20 14:41 03/15/20 14:41 03/15/20 14:41 - Notes Notes: PHYSICAL EXAMINATION: Physical Exam: General: Well-nourished well-developed and in no acute distress HEENT: NC/AT, pupils equal round and reactive to light, MM moist,nares clear, oropharynx clear, airway patent + lateral nystagmus Neck: supple, no adenopathy, no masses. Good range of motion Lungs: clear, no wheezing, no rales no rhonchi CVS: Regular rate and rhythm no murmur gallop or rub Abdomen: Soft, active, nontender, no masses, no hepatosplenomegaly Ext: No edema, clubbing or cyanosis. Neuro: Alert and responsive, moving all 4 extremities on command, cranial nerves intact, no focal findings Skin: Intact no open lesions, no rash PSYCH: Normal mood, normal affect. Course - Re-evaluation Re-evalutation: 03/15/20 19:33 Patient is placed in the prone position on a stretcher and Maria De Jesus's maneuver performed, he has had some slight improvement after the procedure. Given he has positional vertigo, I am increasing his vertigo to a 3 times daily dosage, he is getting a dose of Decadron and he will be discharged home to follow-up with his primary care doctor on Monday if things are not continuing to improve. - Vital Signs Vital signs: Temp Pulse Resp BP Pulse Ox 97.6 F 84 18 151/90 H 98 03/15/20 19:48 03/15/20 19:48 03/15/20 19:48 03/15/20 19:48 03/15/20 19:48 - Laboratory Result Diagrams: 03/15/20 15:28 03/15/20 15:28 Laboratory results interpreted by me: 03/15/20 03/15/20 03/15/20 15:28 15:28 15:28 RBC 5.64 H Hgb 17.5 H RDW 14.4 H Glucose 148 H Urine Blood MODERATE H 03/15/20 19:34 I have reviewed laboratory data and used this information for the treatment decisions regarding the patient. - Diagnostic Test Radiology reviewed: Image reviewed, Reports reviewed Radiology results interpreted by me: 03/15/20 19:34 CT head: No acute CVA, no masses, microvascular disease. - EKG Interpretation by Ny Rhythm: NSR - EKG interpreted by Dr. German: Normal sinus rhythm, rate 65, QT interval normal, normal axis, no acute ST or T wave abnormalities, no ischemic findings, there is no prior EKG to compare. Discharge - Discharge Clinical Impression: Vertigo Nausea and vomiting Qualifiers: Vomiting type: unspecified Vomiting Intractability: unspecified Qualified Code(s): R11.2 - Nausea with vomiting, unspecified Condition: Good Disposition: HOME, SELF-CARE Instructions: Antinausea Medication ([facility]), Vertigo ([facility]) Additional Instructions: You were seen in the emergency department today with vertigo and associated nausea and vomiting. You are given medications in the emergency department to control the nausea and vomiting and you are being discharged home with a Dosepak of medications and a prescription. Please continue the Antivert as prescribed, begin the Medrol Dosepak and Zofran as directed. If your symptoms are worsening or if you have other concerns you may return to the emergency department for further evaluation and treatment. HOME CARE INSTRUCTIONS & INFORMATION: Thank you for choosing us for your medical needs. We hope you're satisfied with the care you received. After you leave, you must properly care for your problem and, at the same time, observe i ts progress. Any condition can change. Some illnesses can change rapidly over hours or days. If your condition worsens, return to the Emergency Department or see your physician promptly. ABOUT YOUR X-RAYS AND EKG'S: If you had an EKG or X-rays taken, they have been read by the Emergency Physician. The X-rays and EKG's will also be read by a Radiologist or Peanut Separator within 24 hours. If discrepancies are noted, you will be notified by telephone. Please be certain the ED has a correct telephone number & address where you can be reached. Also, realize that some fractures or abnormalities do not show up on initial X-rays. If your symptoms continue, see your physician. ABOUT YOUR LABORATORY TEST: If you had laboratory tests, the results have been reviewed by the Emergency Physician. Some test results (for example cultures) may not be available for several days. You will be contacted if any test result shows you need additional treatment. Please be certain the ED has a correct telephone number and address where you can be reached. ABOUT YOUR MEDICATIONS: You will receive instructions on how to take your medicine on the prescription label you receive. Additional information may be provided by the Pharmacy. If you have questions afterwards, call the ED for clarification or further instructions. Some prescribed medications may cause drowsiness. Do not perform tasks such as driving a car or operating machinery without consulting your Pharmacist. If you feel you need a refill of pain medication, your condition will need re-evaluation. Please do not call for a refill of any medication. ABOUT YOUR SIGNATURE: Signature of this document acknowledges to followin. Understanding that you received emergency treatment and that you may be released before al medical problems are known or treated. Please be certain the ED has a correct phone number & address where you can be reached. 2. Acknowledgement that you will arrange for follow-up care as recommended. 3. Authorization for the Emergency Physician to provide information to your follow-up Physician in order to maximize your care. AT ANY TIME, IF YOUR SYMPTOMS CHANGE SIGNIFICANTLY OR WORSEN OR YOU DEVELOP NEW SYMPTOMS, RETURN TO THE EMERGENCY DEPARTMENT IMMEDIATELY FOR RE-EVALUATION. OUR GOAL IS TO PROVIDE EXCELLENT MEDICAL CARE! WE HOPE THAT WE HAVE MET YOUR EXPECTATIONS DURING YOUR EMERGENCY DEPARTMENT VISIT AND THAT YOU FEEL YOU HAVE RECEIVED EXCELLENT CARE! Prescriptions: Meclizine HCl [Antivert 25 mg Tablet] 25 mg PO TID PRN #21 tablet PRN Reason: Prednisone [Deltasone 20 mg Tablet] 1 tab PO BID 5 Days #10 tablet Ondansetron [Zofran Odt 4 mg Tablet] 1 - 2 tab PO Q4H PRN #10 tab.rapdis PRN Reason: For Nausea/Vomiting [facility]errals: [facility] [Primary [facility]] - Follow up as needed
--- NOTE | 2020-03-15 17:57 | RADIOLOGY REPORT (SQ) ---
EXAM DESCRIPTION: CT HEAD WITHOUT IMAGES COMPLETED DATE/TIME: 03/15/2020 5:45 pm REASON FOR STUDY: Dizziness COMPARISON: CT head 11/25/2019. TECHNIQUE: Axial images acquired through the brain without intravenous contrast. Images reviewed wi th bone, brain and subdural windows. Images stored on PACS. All CT scanners at this facility use dose modulation, iterative reconstruction, and/or weight based d osing when appropriate to reduce radiation dose to as low as reasonably achievable (ALARA). [facility]: Dose Right [facility]: CareDose [facility]: Dose Right [facility]: Teradose 4D [facility]: Smart Riidr RADIATION DOSE: CT Rad equipment meets quality standard of care and radiation dose reduction techniq ues were employed. CTDIvol: 53.2 mGy. DLP: 937 mGy-cm.mGy. LIMITATIONS: None. FINDINGS: VENTRICLES: Prominent. CEREBRUM: No mass effect. No hemorrhage. No midline shift. Areas of low density in the white matte r most likely due to chronic micro-vascular ischemic change. No evidence for acute territorial infar ction. CEREBELLUM: No hemorrhage. No alteration of density. No evidence for acute infarction. EXTRAAXIAL SPACES: Age-related involutional change. No fluid collections. ORBITS AND GLOBE: Symmetrical contour of the globes. CALVARIUM: No depressed fracture. PARANASAL SINUSES: Mucous retention cysts/polyps at the left maxillary sinus and left sphenoid sinus. SOFT TISSUES: No hematoma. IMPRESSION: CHRONIC CHANGES OF ATROPHY AND MICROVASCULAR ISCHEMIA. NO ACUTE PROCESS. EVIDENCE OF ACUTE STROKE: NO. TECHNICAL DOCUMENTATION: JOB ID: [id number] ID- Quality ID # [id number]: Final reports with documentation of one or more dose reduction techniques (e.g., Au tomated exposure control, adjustment of the mA and/or kV according to patient size, use of iterative reconstruction technique) 2010 [employer]- All Rights Reserved Reading location - IP/workstation name: [email or web address]
[2020-03-15 18:05] LABS: APPEARANCE,URINE CLEAR; BILIRUBIN,URINE NEGATIVE (NEGATIVE); COLOR,URINE YELLOW; GLUCOSE, URINE NEGATIVE (NEGATIVE); KETONES,URINE NEGATIVE (NEGATIVE); LEUKOCYTE ESTERASE,URINE NEGATIVE (NEGATIVE); NITRITE,URINE NEGATIVE (NEGATIVE); PROTEIN,URINE NEGATIVE (NEGATIVE); URINE SPECIFIC GRAVITY 1.011; UROBILINOGEN,URINE NEGATIVE mg/dL (<2.0)
--- NOTE | 2020-03-15 18:23 | EKG REPORT ---
SEVERITY:- NORMAL ECG - SINUS RHYTHM : Confirmed by: Fabian Lanier MD 15-Mar-2020 18:22:48
[2020-03-15] MEDS ORDERED: MECLIZINE HCL 25 MG TABLET PO ONE (19:42)
[2020-03-15] MEDS ORDERED: DEXAMETHASONE SOD PHOSPHATE INJ 4 MG/1 ML VIAL IV ONE (19:42)
[2020-03-15] MEDS ORDERED: ONDANSETRON ODT 4 MG TAB (6 TAB/ER DISP) PO PRN (20:47)
[2020-03-15 21:16] VITALS: BP 145/87
== END 2020-03-15 21:05 | disposition home or self-care (01) ==
LOC: ER 14:38
DX: R42 Dizziness and giddiness (principal); R11.2 Nausea with vomiting, unspecified; F17.200 Nicotine dependence, unspecified, uncomplicated; I10 Essential (primary) hypertension; J45.909 Unspecified asthma, uncomplicated
CPT/HCPCS: 93005; 99285; 96374; 96375; 36415; 83735; 85025; 85610; 85730; 80053; 81001; 84484; 70450; 93010; J1100; J2405